=== PATIENT | female | born 1935 | race Caucasian/White ===

== ENCOUNTER → 2018-05-28 09:13 | Outpatient (CLI) | payer MEDICARE, OTHER, SELFPAY ==
[2018-05-28 08:56] VITALS: BMI 33.6
--- NOTE | 2018-05-28 09:32 | US_ITS ---
STUDY: ULTRASOUND BREAST - RIGHT REASON FOR EXAM: Female, 83 years old. Patient was scheduled for ultrasound-guided breast biopsy. TECHNIQUE: Axial and longitudinal images of the RIGHT breast were performed with a high resolution ultrasound transducer. COMPARISON: None. FINDINGS: RIGHT Breast: Imaging of the upper outer quadrant of the right breast demonstrated 2 benign-appearing lymph nodes. The biopsy was canceled. US/Breast Limited Unilateral IMPRESSION: 2 benign-appearing lymph nodes are seen in the axillary region of the breast. The biopsy was canceled. ASSESSMENT CATEGORY: BIRADS Category 2: Benign. A letter regarding these results will be sent to the patient by the facility within 30 days. Electronically Signed: Giancarlo Downey, at 12:59 EDT , Service support ,
== END ==
PROVIDERS: Family Provider Internal Medicine; PCP Internal Medicine; Referring Provider Surgery; Visit Provider Surgery
DX: R92.8 Other abnormal and inconclusive findings on diagnostic imaging of breast (principal)
CPT/HCPCS: 76642

== ENCOUNTER → 2018-08-10 08:30 | Outpatient (CLI) | payer MEDICARE, OTHER, SELFPAY ==
[2018-05-28 08:56] VITALS: BMI 33.6
--- NOTE | 2018-08-10 08:36 | NM_ITS ---
CLINICAL: 83-year-old female with reported history of clinical hyperparathyroidism. 99m Tc SESTAMIBI DUAL PHASE PARATHYROID SCINTIGRAPHY COMPARISON: None available FINDINGS: Following the intravenous administration of 26.1 mCi of 99m Tc sestamibi, image acquisitions of the anterior neck at 20 minutes and 2.0 hours post radiopharmaceutical provision reveal: 1. Immediate static blood pool acquisitions demonstrate distribution of the radiopharmaceutical in the right-left thyroid colloid of a vaguely U-shaped thyroid gland. 2. Delayed images depict relatively symmetric incomplete washout of the radiopharmaceutical from the visualized right-left thyroid beds. No definitive anterior neck focal retention of the radiopharmaceutical is readily identified. Facilitated uptake is noted in the lower midline chest. NM/Parathyroid Scan IMPRESSION: 1. NEGATIVE 99m Tc SESTAMIBI PARATHYROID IMAGING DUAL PHASE EXAMINATION. 2. There is no definitive scintigraphic evidence of parathyroid adenoma on the current evaluation. 3. Facilitated uptake identified in the lower midline chest is of uncertain anatomic localization and etiology. Correlation with CT of the chest with intravenous contrast may be of benefit for further evaluation. Electronically Signed: Kenneth Day DO at 23:12 EDT Tel , Service support ,
== END ==
PROVIDERS: Family Provider Internal Medicine; PCP Internal Medicine; Referring Provider Internal Medicine; Visit Provider Internal Medicine
DX: E21.3 Hyperparathyroidism, unspecified (principal)
CPT/HCPCS: 78070; A9500

== ENCOUNTER → 2018-08-18 12:04 | Outpatient (CLI) | payer MEDICARE, OTHER, SELFPAY ==
[2018-05-28 08:56] VITALS: BMI 33.6
--- NOTE | 2018-08-18 12:16 | CT_ITS ---
STUDY: CT CHEST WITH CONTRAST REASON FOR EXAM: Female, 83 years old. Fatigue RADIATION DOSAGE (If Supplied By Facility): CTDIvol = ( 14.59 ) mGy, DLP = ( 554.00 ) mGycm TECHNIQUE: Transaxial imaging was performed following intravenous administration of 100 IV Isovue 300. Multiplanar coronal and sagittal images were reformatted. Individualized dose optimization techniques were used for this CT. COMPARISON: None. FINDINGS: Within the left-sided thyroid there is a low attenuating nodule measuring 1.2 x 1.0 cm. There is a nodule within the anterior aspect of the left upper lobe measuring 6.1 mm. There is a small nodule within the lingula measuring 4.2 mm. There is a subtle peripheral nodule in the left lung base measuring 6.7 mm. There is no demonstrated pleural abnormality. There is mild cardiac enlargement. There are multiple small lymph nodes within the mediastinum, which are normal in size. There is a nonspecific left hilar lymph node measuring 8.9 mm. Normal enhanced pulmonary arteries. There is atherosclerotic tortuosity of the aortic arch and descending thoracic aorta. There are multi-level degenerative changes of the thoracic spine. There are multiple bridging osteophytes and can be associated with ankylosing spondylolysis. There is a right sided cyst measuring 3.[address]/Chest WITH Contrast IMPRESSION: Small nonspecific nodules within the lungs for which a follow-up CT chest is suggested in 6 months to ensure stability. Small well-circumscribed low attenuating nodule within the left thyroid is a 1.2 x 1.1 cm. Recommend follow-up thyroid ultrasound and laboratory values. Especially given the patient's clinical history. Degenerative change thoracic spine with bridging osteophytosis. This can be associated with ankylosing spondylitis. Electronically Signed: Sandra Bills MD at 23:37 EDT Tel , Service support ,
[2018-08-18 12:41] LABS: CREATININE FINGERSTICK 1.1 mg/dL (0.55-1.02)
== END ==
PROVIDERS: Family Provider Internal Medicine; PCP Internal Medicine; Referring Provider Internal Medicine; Visit Provider Internal Medicine
DX: R93.89 Abnormal findings on diagnostic imaging of other specified body structures (principal)
CPT/HCPCS: 71260; Q9967

== ENCOUNTER → 2018-08-27 14:07 | Outpatient (CLI) | payer MEDICARE, OTHER, SELFPAY ==
[2018-05-28 08:56] VITALS: BMI 33.6
--- NOTE | 2018-08-27 14:09 | BD_ITS ---
STUDY: DUAL ENERGY X-RAY ABSORPTIOMETRY / DXA REASON FOR EXAM: Female, 83 years old. Postmenopausal. Loss of height. TECHNIQUE: Bone Mineral Density (BMD) measurements of the left forearm and bilateral hips were obtained. COMPARISON: Comparison is made with prior examination dated June 26, 2011. FINDINGS: Left Femur Total: g/cm2 (0.687) / T-score (-2.5) / Z-score (-0.3) Left Femoral Neck: g/cm2 (0.588) / T-score (-3.2) / Z-score (-0.9) Right Femur Total: g/cm2 (0.675) / T-score (-2.6) / Z-score (-0.4) Right Femoral Neck: g/cm2 (0.598) / T-score (-3.2) / Z-score (0.8) Left Forearm: g/cm2 (0.689) / T-score (-2.1) / Z-score (1.0) The T-Scores on the most recent prior examination were: Left Femur Total: which represents an improvement of 0.9%. Right Femur Total: which represents a worsening of 3.7%. BD/Dexa Bone Density Study IMPRESSION: The patient is considered osteoporotic as outlined below according to World Nolan Organization (WHO) criteria with a high fracture risk. There has been worsening of bone density since the previous examination. Reference Information: The T-score is the number of standard deviations above or below the standard which is normal for young adults at their peak bone mineral density. The World Health Organization (WHO) interprets the T-scores as follows: Above -1 Normal bone density Between -1 and -2.5 Osteopenia Equal to / or below -2.5 Osteoporosis As a practical clinical guideline, osteopenia may be graded as follows: Mild -1 through -1.5 Moderate -1.6 through -2.0 Severe -2.1 through -2.4 The Z-score is the number of standard deviations above or below age-matched controls. A Z-score of less than -1.5 would be considered abnormal. References: 1. NIH Osteoporosis and Related Bone Diseases http://www.osteo.org 2. International Society for Clinical Densitometry http://www.iscd.org 3. National Osteoporosis Foundation http://www.nof.org Electronically Signed: Giancarlo Downey, at 14:59 EDT , Service support ,
--- NOTE | 2018-08-27 14:09 | BI_ITS ---
MAMMOGRAPHY - BILATERAL SCREENING 3-D TOMOSYNTHESIS REASON FOR EXAM: Female, 83 years old. Bilateral Screening 3-D tomosynthesis PERTINENT HISTORY: No significant family history. TECHNIQUE: 2-D mammograms and 3-D Tomosynthesis of the breast (s) were performed. CAD was performed. COMPARISON: None. FINDINGS: The breast composition is almost entirely fat. Scattered benign calcifications are seen. No dense spiculated masses or suspicious microcalcifications are identified. No architectural distortion is identified. There is no skin thickening or retraction. There has been no significant change since the prior study. BI/SCREEN MAMM (CAD) W/CHIDI BILAT IMPRESSION: No mammographic signs of malignancy. Routine yearly mammograms recommended. ASSESSMENT CATEGORY: BIRADS Category 2: Benign. A letter regarding these results will be sent to the patient by the facility within 30 days. FOLLOW UP RECOMMENDATION: Yearly follow up mammogram recommended. (A) Approximately 10% of breast cancers are not detected by mammography. A normal mammogram should not delay biopsy of a clinically suspicious abnormality. Electronically Signed: Chava Sanchez MD at 17:09 EDT , Service support ,
== END ==
PROVIDERS: Family Provider Internal Medicine; PCP Internal Medicine; Referring Provider Internal Medicine; Visit Provider Internal Medicine
DX: Z78.0 Asymptomatic menopausal state (principal); Z12.31 Encounter for screening mammogram for malignant neoplasm of breast
CPT/HCPCS: 77063; 77067; 77080

== ENCOUNTER → 2018-09-29 09:48 | Outpatient (CLI) | payer MEDICARE, OTHER, SELFPAY ==
[2018-05-28 08:56] VITALS: BMI 33.6
--- NOTE | 2018-09-29 09:50 | US_ITS ---
STUDY: THYROID ULTRASOUND REASON FOR EXAM: Female, 83 years old. Nodules on prior imaging. TECHNIQUE: Ultrasound evaluation of the thyroid was performed with real-time and static king-scale imaging. COMPARISON: Nuclear medicine parathyroid scan August 10, 2018. FINDINGS: RIGHT LOBE: The right lobe of the thyroid gland measures 4.7 x 1.7 x 2.2 cm. There is a homogeneous echotexture. There are multiple well-defined hypoechoic structures of varying size, consistent with colloid cyst. Some of these have a focal mural nodule or calcification along their periphery. The largest of these is 7.5 x 4.5 x 5.8 mm. Heterogeneous, incompletely defined 10.9 x 7.7 x 8.5 mm solid nodule seen in the lower pole. LEFT LOBE: The left lobe of the thyroid gland measures 4.4 x 2.0 x 1.9 cm. There is a homogeneous echotexture. There are multiple well-defined hypoechoic cystic structures, again several with focal mural nodule or other echogenic debris along the periphery. The largest is 9.4 x 10.6 x 10.7 mm complex cyst in the medial posterior mid pole. A moderately well-defined hypoechoic, heterogeneous 6.3 x 8.8 x 5.5 mm structure that may also be a complicated cyst is seen in the lateral midpole. There is a heterogeneous 8.3 x 4.1 x 5.3 mm solid nodule in the anterolateral lower pole. ISTHMUS: The isthmus measures 4 cm. The regional lymph nodes are normal. US/Thyroid IMPRESSION: 1. Findings consistent with a multinodular goiter. Multiple simple and complicated colloid cysts are also present. 2. There is a dominant 10.9 mm solid nodule in the lower pole of the right lobe. At the least, a six-month follow-up is advised to document stability. If clinically indicated, this may also be amenable to ultrasound-guided needle biopsy. Electronically Signed: Phillip Turner MD at 14:59 EDT , Service support ,
== END ==
PROVIDERS: Family Provider Internal Medicine; PCP Internal Medicine; Referring Provider Internal Medicine; Visit Provider Internal Medicine
DX: E04.1 Nontoxic single thyroid nodule (principal)
CPT/HCPCS: 76536

== ENCOUNTER → 2018-10-20 11:11 | Outpatient (CLI) | payer MEDICARE, OTHER, SELFPAY ==
[2018-10-20 09:16] VITALS: BMI 33.6
--- NOTE | 2018-10-20 09:30 | ASPS_PTH ---
PATIENT: Sultana REAVES LOC: [facility] U#:[id number] AGE/SX: 89/F ROOM: RE10/20/[address]: Dr. Dann Maurciio MD : 1935 BED: DIS: SPEC #: [id number] RECD: 10/20/18 10:43 STATUS: CORNELIUS ASHWINI #: [id number] MAMADOU: 10/20/18 09:[address]: Dann Mauricio DEPT: CYTOLOGY RECD BY: Catrachito Pena ENTERED: 10/20/18 11:32 SP TYPE: ASPIRATION OTHR DR: Dr. Angelina Jacobson, DO Tissues: Thyroid gland, NOS Procedures: Special Stain Group II Cytology Other HEADER OPERATION: Ultrasound-guided fine needle aspiration left thyroid PRE-OP DIAGNOSIS: Multinodular goiter E04.2 TISSUE SUBMITTED: Fine needle aspiration left thyroid (12 slides) DIAGNOSIS CYTOLOGY Left thyroid nodule, ultrasound-guided FNA (smears): Consistent with benign colloid nodule with focal cystic changes. Adequate for evaluation. SJ:rg 10/21/18 COMMENT Correlation with clinical, radiologic findings and appropriate follow up are necessary. CYTOLOGY STUDY Slides are reviewed. CYTOLOGY GROSS Received are 12 smears labeled with the patient's name and designated per the requisition as FNA left thyroid. Submitted for staining. / 10/20/18 TC:5 CPT: 55718
== END ==
PROVIDERS: Family Provider Internal Medicine; PCP Internal Medicine; Referring Provider Surgery; Visit Provider Surgery
DX: E04.2 Nontoxic multinodular goiter (principal)
CPT/HCPCS: 88161; 88313

== ENCOUNTER → 2018-11-16 15:51 | Outpatient (CLI) | payer MEDICARE, OTHER, SELFPAY ==
[2018-10-20 09:16] VITALS: BMI 33.6
--- NOTE | 2018-11-16 16:01 | RAD_ITS ---
STUDY: X-RAY - PELVIS AND RIGHT HIP REASON FOR EXAM: Female, 83 years old. Increasing right hip pain. TECHNIQUE: 3 views of the pelvis and hip. COMPARISON: None. FINDINGS: There is a non-specific bowel gas pattern. A pessary device is in situ. There is narrowing with cortical sclerosis and osteophyte formation of the sacroiliac joint consistent with degenerative osteoarthritic changes. Normal bilateral superior and inferior pubic rami. There are degenerative changes of the pubic symphysis with articular narrowing and sclerosis. Normal bilateral ischial tuberosities. Prior laminectomy and fusion of the lower lumbar spine. Normal visualized femoral head. There is osteoarthritic spur formation of the acetabular rim. There is moderate articular joint space narrowing of the hip. RAD/HIP, UNI W/ Pelvis 2-3 Views IMPRESSION: Degenerative changes of the right hip joint. Prior laminectomy and fusion in the lower lumbar spine. Electronically Signed: Giancarlo Downey, at 14:43 EDT , Service support ,
--- NOTE | 2018-11-16 16:01 | RAD_ITS ---
STUDY: X-RAY - RIGHT KNEE REASON FOR EXAM: Female, 83 years old. Increasing hip and knee pain TECHNIQUE: 4 view(s) of the knee. COMPARISON: None. FINDINGS: The knees are intact and located without acute fractures or destructive lesions. There is moderate to severe degenerative change in the lateral weightbearing compartment. Soft tissues unremarkable without joint effusion or foreign bodies. RAD/Knee 4 or More Views IMPRESSION: Moderate to severe degenerative change in the lateral weightbearing compartment. Electronically Signed: Angle Bess, at 16:59 EDT Tel , Service support ,
== END ==
PROVIDERS: Family Provider Internal Medicine; PCP Internal Medicine; Referring Provider Internal Medicine; Visit Provider Internal Medicine
DX: M17.11 Unilateral primary osteoarthritis, right knee (principal); M16.11 Unilateral primary osteoarthritis, right hip
CPT/HCPCS: 73502; 73564

== ENCOUNTER → 2019-03-05 12:58 | Outpatient (CLI) | payer MEDICARE, OTHER, SELFPAY ==
[2018-10-09 13:04] VITALS: BMI 33.6
[2018-10-20 09:16] VITALS: BMI 33.6
--- NOTE | 2019-03-05 13:01 | CT_ITS ---
STUDY: CT CHEST WITHOUT CONTRAST REASON FOR EXAM: Female, 83 years old. lung nodule RADIATION DOSAGE (If Supplied By Facility): CTDIvol = ( 13.47 ) mGy, DLP = ( 445.52 ) mGycm TECHNIQUE: Transaxial imaging was performed without the administration of intravenous contrast material. Individualized dose optimization techniques were used for this CT. COMPARISON: 08/18/2018 FINDINGS: Linear scar in the anterior left upper lobe the lungs. No change in a 6 mm noncalcified nodule in the anterior left upper lobe the lungs on image 76 likely consistent with a noncalcified granuloma. Follow-up CT the chest is recommended in 6 months document stability. Also no change in the 6 cm noncalcified nodule in the periphery of the left lower lobe the lungs on image 133 and follow-up CT is recommended in 6 months document stability. There is no demonstrated pleural abnormality. Normal heart and pericardium. There are calcifications of the coronary arteries. Normal mediastinum. Normal hilar regions. Normal unenhanced pulmonary arteries. Normal aorta arch and descending thoracic aorta. Normal osseous structures. There is no demonstrated abnormality of the visualized upper abdomen. CT/Chest without Contrast IMPRESSION: No change in left lung nodules follow-up CT is recommended in 6 months document stability. Electronically Signed: Kenneth Thakkar MD at 13:36 EST Tel , Service support ,
== END ==
PROVIDERS: Family Provider Internal Medicine; PCP Internal Medicine; Referring Provider Internal Medicine Pulmonary Disease; Visit Provider Internal Medicine Pulmonary Disease
DX: R91.8 Other nonspecific abnormal finding of lung field (principal)
CPT/HCPCS: 71250

== ENCOUNTER → 2019-07-22 12:01 | Outpatient (CLI) | payer MEDICARE, OTHER, SELFPAY ==
[2018-10-20 09:16] VITALS: BMI 33.6
--- NOTE | 2019-07-22 12:09 | MRI_ITS ---
STUDY: MRA OF THE HEAD WITHOUT CONTRAST REASON FOR EXAM: Female, 84 years old. F/u to abnormal mri; bulge off of cavernous carotid artery TECHNIQUE: 3-D [id number] (TOF) imaging was performed with MIPs. The study was performed unenhanced. COMPARISON: None. FINDINGS: Normal bilateral petrous carotid arteries. Mild dolichoectasia of the right cavernous carotid artery and the right supraclinoid internal carotid artery. Normal right supraclinoid ICA bifurcation. 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 The aneurysmal sac is directed medially.. The aneurysm neck is 4.5 mm and the length of the aneurysm is 4.2 mm. Mild dolichoectasia of the left internal carotid artery siphon extending to the left supraclinoid internal carotid artery. Normal left supraclinoid internal carotid artery bifurcation. Normal right A1 segment of the anterior cerebral artery. Normal left A1 segment of the anterior cerebral artery. Normal intact anterior communicating artery (ACOM). Normal bilateral A2 segments of the anterior cerebral arteries. Normal right M1 and M2 segments of the middle cerebral arteries, with a normal M1 bifurcation. Normal left M1 and M2 segments of the middle cerebral arteries, with a normal M1 bifurcation. No visible right posterior communicating artery (PCOM). Normal left posterior communicating artery (PCOM). Normal bilateral vertebral arteries. The right is more dominant. Normal basilar artery with a normal basilar bifurcation. The visualized bilateral superior cerebellar (SCA) arteries are normal. Normal bilateral P1, P2 and visualized P3 segments of the posterior cerebral arteries. There is no demonstrated aneurysm of the [place]. There is no major vessel occlusion or hemodynamically significant stenosis. There is no demonstrated abnormality of the visualized brain. OPINION: 1. 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 There is no risk of subarachnoid hemorrhage since this is extradural in location. 2. Mild dolichoectasia of both internal carotid artery siphons extending to the supraclinoid internal carotid arteries. 3. No other saccular aneurysms and no fusiform aneurysms of the anterior and posterior intracranial circulation. Electronically Signed: Zohaib Hitchcock MD at 16:38 EDT , Service support , MRI/MRA Head ONLY without Contrast
== END ==
PROVIDERS: PCP Internal Medicine; Referring Provider Internal Medicine; Visit Provider Internal Medicine
DX: R90.89 Other abnormal findings on diagnostic imaging of central nervous system (principal)
CPT/HCPCS: 70544

== ENCOUNTER → 2019-09-07 12:49 | Outpatient (CLI) | payer MEDICARE, OTHER, SELFPAY ==
[2018-10-20 09:16] VITALS: BMI 33.6
--- NOTE | 2019-09-07 12:59 | CT_ITS ---
STUDY: CT CHEST WITHOUT CONTRAST REASON FOR EXAM: Female, 84 years old. LUNG NODULE RADIATION DOSAGE (If Supplied By Facility): CTDIvol = ( 15.24 ) mGy, DLP = ( 459.96 ) mGycm TECHNIQUE: Transaxial imaging was performed without the administration of intravenous contrast material. Multiplanar coronal and sagittal images were reformatted. Individualized dose optimization techniques were used for this CT. COMPARISON: Comparison is made with prior examination dated March 05, 2019. FINDINGS: Stable small bilateral axillary lymph nodes. Stable linear scar anterior aspect of the left upper lobe. Stable 6 mm noncalcified nodule in the anterior medial aspect of the left upper lobe as seen on axial image #76. Stable 6 mm noncalcified nodule in the peripheral aspect of the left lower lobe as seen on axial image #126. Stable increased markings in the posterior aspect of the lingular segment of the left upper lobe as well as in the left lower lobe suggestive of scarring. This is unchanged. There is no demonstrated pleural abnormality. There are calcifications of the coronary arteries. There are multiple small lymph nodes within the mediastinum, which are normal in size and morphology most compatible with reactive lymph hyperplasia. Normal hilar regions. Normal unenhanced pulmonary arteries. There is atherosclerotic calcification of the aortic arch with tortuosity and elongation of the aortic arch and descending thoracic aorta. There are multi-level degenerative changes of the thoracic spine. Increased thoracic kyphosis. There is no demonstrated abnormality of the visualized upper abdomen. CT/Chest without Contrast IMPRESSION: Stable examination. A 12 month follow-up CT examination recommended for further follow-up. Electronically Signed: Giancarlo Dwoney, at 13:38 EDT , Service support ,
--- NOTE | 2019-09-07 13:10 | US_ITS ---
STUDY: THYROID ULTRASOUND REASON FOR EXAM: Female, 84 years old. NODULE TECHNIQUE: Ultrasound evaluation of the thyroid was performed with real-time and static king-scale imaging. COMPARISON: September 29, 2018 FINDINGS: RIGHT LOBE: The right lobe of the thyroid gland measures 4.4 x 1.7 x 1.6 cm. There is a heterogeneous echotexture. There are multiple nodules. The largest nodule is solid and heterogeneous measuring 7 x 7 x 10 mm in the lower pole with irregular margins and intranodular vascularity. There is a cystic lesion in the upper pole measuring 7 x 5 x 5 mm.. LEFT LOBE: The left lobe of the thyroid gland measures 4.5 x 1.9 x 1.7 cm. Echogenicity is heterogeneous. There are multiple nodules. The largest nodule measures 7 x 8 x 6 mm demonstrating complex cystic structure with irregular margins and perih nodular vascularity There is a cystic nodule in the upper pole measuring 7 x 7 x 7 mm solid hypoechoic nodule in the lower pole measuring 6 x 5 x 5 mm ISTHMUS: The isthmus measures 4 mm . The regional lymph nodes are normal. The appearance of the thyroid is relatively stable since prior exam with the largest nodules being relatively unchanged in size US/Thyroid IMPRESSION: Heterogeneous thyroid with multiple bilateral nodules not significantly changed since prior exam.. Electronically Signed: Edmar Tucker MD at 16:54 EDT , Service support ,
== END ==
PROVIDERS: PCP Internal Medicine; Referring Provider Internal Medicine; Visit Provider Internal Medicine
DX: R91.8 Other nonspecific abnormal finding of lung field (principal); E04.1 Nontoxic single thyroid nodule
CPT/HCPCS: 71250; 76536

== ENCOUNTER → 2019-10-20 10:47 | Outpatient (CLI) | payer MEDICARE, OTHER, SELFPAY ==
[2018-10-20 09:16] VITALS: BMI 33.6
--- NOTE | 2019-10-20 10:49 | MRI_ITS ---
STUDY: MRA OF THE HEAD WITHOUT CONTRAST REASON FOR EXAM: Female, 84 years old. brain aneurysm -- left eye pain, TECHNIQUE: 3-D idba-sa-gaduvc (TOF) imaging was performed with MIPs. The study was performed unenhanced. COMPARISON: None. FINDINGS: Normal bilateral petrous carotid arteries. Normal right cavernous carotid artery with a normal supraclinoid bifurcation. 5 mm aneurysm of the medial wall of the cavernous left carotid artery extending into the cavernous sinus. Normal right A1 segments of the anterior cerebral artery. Normal left A1 segments of the anterior cerebral artery. Normal intact anterior communicating artery (ACOM). Normal bilateral A2 segments of the anterior cerebral arteries. Normal right M1 and M2 segments of the middle cerebral arteries, with a normal M1 bifurcation. Normal left M1 and M2 segments of the middle cerebral arteries, with a normal M1 bifurcation. Normal right posterior communicating artery (PCOM). Normal left posterior communicating artery (PCOM). Normal bilateral vertebral arteries. Normal basilar artery with a normal basilar bifurcation. The visualized bilateral superior cerebellar (SCA) arteries are normal. Normal bilateral P1, P2 and visualized P3 segments of the posterior cerebral arteries. There is no demonstrated aneurysm of the [place]. There is no major vessel occlusion or hemodynamically significant stenosis. There is no demonstrated abnormality of the visualized brain. 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 Electronically Signed: Kenneth Thakkar MD at 13:05 EDT Tel , Service support ,
== END ==
PROVIDERS: PCP Internal Medicine; Referring Provider Internal Medicine; Visit Provider Internal Medicine
DX: I67.1 Cerebral aneurysm, nonruptured (principal)
CPT/HCPCS: 70544

== ENCOUNTER → 2020-01-11 | Outpatient (CLI) | payer MEDICARE, OTHER, SELFPAY ==
[2018-10-20 09:16] VITALS: BMI 33.6
--- NOTE | 2020-01-11 14:20 | CER_PTH ---
PATIENT: Sultana REAVES [facility] U#:[id number] AGE/SX: 84/F ROOM: RE01/11/[address]: Dr. Risa Linton MD : 1935 BED: DIS: 01/11/2020 SPEC #: [id number] RECD: 01/11/20 14:20 STATUS: CORNELIUS REQ #: [id number] MAMADOU: 01/11/20 14:[address]: Risa Mckeon DEPT: SURGICAL PATHOLOGY RECD BY: Hannah Mtz ENTERED: 01/12/20 08:57 SP TYPE: CERV OTHR DR: Dr. Angelina Jacobson DO Tissues: Uterine cervix, NOS Procedures: Surgery Specimen Level IV HEADER OPERATION: Removal cervical polyp PRE-OP DIAGNOSIS: Cervical polyp TISSUE SUBMITTED: Cervical polyp MICROSCOPIC DIAGNOSIS Cervical polyp: Inflamed benign mixed ecto- and endocervical polyp. Fragments of benign endocervical epithelium and mucous. SJ:whit 01/13/20 MICROSCOPIC DESCRIPTION Slides are reviewed. GROSS DESCRIPTION Received in fixative is one container labeled with the patient's name and designated cervical polyp. The specimen consists of a fragment of burdick polypoid tissue measuring 0.5 x 0.5 x 0.3 cm. Also present in the container are multiple fragments of mucoid tissue that in aggregate measure 1 x 1 x 0.1 cm. The specimen is totally submitted in one cassette. / SJ:whit 01/12/20 TC:5 [facility]: [id number]
== END | disposition home or self-care (01) ==
LOC: LABSPEC 16:21
PROVIDERS: PCP Internal Medicine; Visit Provider Obstetrics & Gynecology
DX: N84.1 Polyp of cervix uteri (principal)
CPT/HCPCS: 88305

== ENCOUNTER 2020-09-11 16:57 | Inpatient (IN) | payer MEDICARE, OTHER, SELFPAY ==
[2018-10-20 09:16] VITALS: BMI 33.6
[2020-09-11] VITALS (9 sets, daily range): BP systolic 134–154; BP diastolic 78–89; PULSE 63–88; RESP 16–22; TEMP 36.6–37.1; O2SAT 84–98; BMI 33.0; BMI 38.3; BMI 37.5
--- NOTE | 2020-09-11 17:34 | CT_ITS ---
STUDY: CTA CHEST REASON FOR EXAM: Female, 85 years old. Hypoxia, eval for PE RADIATION DOSAGE (If Supplied By Facility): CTDIvol = ( 8.10 ) mGy, DLP = ( 502.28 ) mGycm TECHNIQUE: The examination was performed with the intravenous administration of IV 100mL Isovue-370. Post-processing of the angiographic images was performed, with multiplanar reformation and 3D reconstruction. Individualized dose optimization techniques were used for this CT. COMPARISON: 09/07/2019 FINDINGS: Normal enhancement of the main pulmonary artery and right and left pulmonary arteries. Normal enhancement of the bilateral peripheral pulmonary arteries. Positive for branching filling defects within the distal aspect of both main pulmonary arteries extending into the ascending and descending pulmonary arteries bilaterally consistent with significant pulmonary emboli. Normal thoracic aorta and visualized great vessels. There is no demonstrated aortic dissection. Normal heart and pericardium. Normal mediastinum. Normal hilar regions. Normal visualized trachea and bronchi. The lungs are well expanded. Normal pulmonary parenchyma. Normal pleura. Normal chest wall structures. Normal osseous structures. Normal visualized upper abdomen. CT/CTA Chest W/WO Contrast IMPRESSION: Positive for bilateral significant pulmonary emboli. Electronically Signed: Kenneth Thakkar MD at 19:11 EDT Tel , Service support ,
--- NOTE | 2020-09-11 17:34 | EKG12_ITS ---
Test Reason : SOB Blood Pressure : / mmHG Vent. Rate : 079 BPM Atrial Rate : 079 BPM P-R Int : 190 ms QRS Dur : 088 ms QT Int : 384 ms P-R-T Axes : 065 059 104 degrees QTc Int : 440 ms Normal sinus rhythm Cannot rule out Inferior infarct , age undetermined Anterior infarct , age undetermined , cannot be excluded ST & T wave abnormality, consider lateral ischemia Abnormal ECG Confirmed by NEHEMIAS CHADWICK, AROLDO ([id number]), offline editor RADHA HE ([id number]) on 09/13/2020 11:50:48 AM Referred By: MICHEL Confirmed By:AROLDO DEL CID MD
--- NOTE | 2020-09-11 17:37 | EDS_ITS ---
HPI History of Present Illness Chief Complaint: Shortness of Breath Informant: patient Narrative Narrative: Patient is a 85-year-old female who presents to the emergency department for shortness of breath. She states that this started . It started after her Prolia injection which she has had 3 other times before in the past. She never had shortness of breath after the injections before. She states that with any exertion she becomes very winded that takes 15 minutes for her to catch her breath. This occurs even after walking short distances. She is never had this before. No associated chest pain. She denies any cough, cold, congestion symptoms. No leg swelling or calf pain. She denies any history of CAD, DVT/PE. She denies any abdominal pain or nausea/vomiting. She has not had any black tarry stools. No urinary symptoms. She denies a smoking history. No history of COPD or asthma. She has not been taking anything for this. She was at her PCPs office today and was satting in the 80s. [facility] Medical History (Updated 09/11/20 @ 21:[address] Corby Sanchez, ) Benign essential HTN Bradycardia Breast lump Multinodular goiter Osteoarthritis PVCs (premature ventricular contractions) Home Medications amlodipine 10 mg tablet 10 mg PO QDAY 10/09/17 [History Last Taken Unknown] cholecalciferol (vitamin D3) 125 mcg (5,000 unit) capsule 5,000 unit PO QDAY 10/09/17 [History Last Taken Unknown] duloxetine 30 mg capsule,delayed release 60 mg PO QDAY 10/09/17 [History Last Taken Unknown] hydrochlorothiazide 25 mg tablet 25 mg PO QDAY 10/09/17 [History Last Taken Unknown] metoprolol succinate 25 mg tablet,extended release 24 hr 25 mg PO QDAY 10/09/17 [History Last Taken Unknown] oxybutynin chloride 10 mg tablet,extended release 24 hr 10 mg PO QDAY 10/09/17 [History Last Taken Unknown] potassium chloride 20 mEq oral packet 20 meq PO QDAY 10/09/17 [History Last Taken Unknown] pregabalin 75 mg capsule 100 mg PO BID cap 10/09/17 [History Last Taken Unknown] atorvastatin 10 mg PO DAILY 09/11/20 [History Last Taken Unknown] carbamazepine 200 mg PO BID 09/11/20 [History Last Taken Unknown] cetirizine [Zyrtec] 10 mg PO DAILY 09/11/20 [History Last Taken Unknown] denosumab [Prolia] See Rx Instructions .ROUTE .COMPLEX 09/11/20 [History Last Taken Unknown] oxycodone-acetaminophen 1 tab PO Q8H PRN PRN 09/11/20 [History Last Taken Unknown] Allergy/AdvReac Type Severity Reaction Status Date / Time No Known Allergies Allergy Verified 09/11/20 16:58 Family History Brother Cancer prostate cancer Father Heart disease Surgical History History of back surgery Hx of blood clots Hx of tonsillectomy Hx of tubal ligation Social History Smoking Status: Never smoker second hand exposure: No alcohol intake: never substance use type: does not use caffeine: Yes what type of physical activity do you participate in: other frequency: does not exercise seatbelt use: always ROS ROS ED Constitutional Constitutional ED: Denies chills or fever(s) Eyes Eyes: Denies change in vision ENT ENT ED: Denies epistaxis or rhinorrhea Cardiovascular Cardiovascular: Denies chest pain or palpitations Respiratory/Chest Respiratory/Chest: Reports dyspnea and dyspnea on exertion; Denies cough or sputum Gastrointestinal Gastrointestinal: Denies abdominal pain, diarrhea, nausea or vomiting Genitourinary Genitourinary ED: Denies dysuria, hematuria or urinary frequency Musculoskeletal Musculoskeletal: Denies back pain or neck pain Integumentary Denies rash Neurologic Neurologic: Denies dizziness, headache(s) or weakness EXAM Physical Exam Const Vital Signs: 09/11/20 16:58 09/11/20 17:07 09/11/20 17:08 Temperature 98.7 F Temperature Source Temporal Pulse Rate 88 82 Respiratory Rate 18 22 H Respiratory Effort Short of Breath Respiratory Pattern Tachypnea Blood Pressure 145/86 H Blood Pressure Mean 105 Pulse Ox 89 84 Oxygen Delivery Method Room Air Room Air Room Air Oxygen Flow Rate (L/min) 09/11/20 17:12 09/11/20 18:11 09/11/20 19:21 Temperature Temperature Source Pulse Rate 66 68 Respiratory Rate 18 16 Respiratory Effort Respiratory Pattern Blood Pressure 151/80 H 154/82 H Blood Pressure Mean 103 106 Pulse Ox 96 98 98 Oxygen Delivery Method Nasal Cannula Nasal Cannula Nasal Cannula Oxygen Flow Rate (L/min) 3 3 3 Positive well nourished and well developed General Appearance ED: well developed and NAD HEENT Reports normocephalic, head/scalp atraumatic and moist mucous membranes Eyes PERRL and EOMs intact bilaterally Neck supple Resp normal respiratory effort and clear to auscultation bilaterally Auscultation: Negative for rales, rhonchi or wheezes Cardio regular rate, regular rhythm and no murmurs GI normal to inspection, nondistended, normoactive bowel sounds and non-tender Palpation: soft; Negative for guarding or rebound tenderness present Extremity normal to inspection General Extremety ED: Negative for edema or tenderness General Extremity: Negative for edema Neuro CN's II-XII intact bilaterally and no sensory deficits noted Sensorium / Orientation: alert Motor Exam: strength 5/5 throughout Psych mental status grossly normal Skin no rashes or lesions noted MDM MDM MDM Narrative Medical decision making narrative: Patient presents to the ED for exertional shortness of breath. This is new for starting this past . Is after getting a Prolia injection. She is descending with short ambulation. She is requiring supplemental oxygen here to keep her O2 saturation up. Will check basic lab work, EKG and CT scan of the chest. She otherwise is in no acute distress and speaking in full sentences on examination. Patient's lab work shows a mild elevation of BNP and troponin. No other significant acute abnormality. CT scan of the chest unfortunately did show bilateral pulmonary emboli. No comment on right heart strain was made by radiologist. She is not having any hypotension here in the ED. She is on 3 L of supplemental oxygen and satting well. Patient started on heparin. All findings were discussed with her. Will bring her to the hospital for further evaluation and management at this time. Lab Data Labs: Laboratory Results - last 24 hr 09/11/20 09/11/20 09/11/20 17:17 17:17 17:17 WBC 6.4 RBC 4.48 Hgb 14.3 Hct 42.4 MCV 94.6 MCH 31.9 MCHC 33.7 RDW Std Deviation 42.7 RDW Coeff of Irish 12.4 Plt Count 158 MPV 9.4 Immature Gran % (Auto) 0.600 Neut % (Auto) 65.2 Lymph % (Auto) 19.4 [place] % (Auto) 11.5 H Eos % (Auto) 2.8 Baso % (Auto) 0.5 Absolute Neuts (auto) 4.2 Absolute Lymphs (auto) 1.25 Nucleated RBC % 0 PT INR APTT Sodium 139 Potassium 3.9 Chloride 106 Carbon Dioxide 26.0 Anion Gap 7 BUN 27 H Creatinine 1.11 H Estim Creat Clear Calc 27.45 Est GFR (MDRD) Af Amer 60 Est GFR (MDRD) Non-Af 50 L BUN/Creatinine Ratio 24.3 H Glucose 101 Calcium 9.1 Total Bilirubin 0.50 AST 28 ALT 32 Alkaline Phosphatase 98 Troponin I High Sens 59.0 H* B-Natriuretic Peptide 124.0 H Total Protein 7.2 Albumin 3.6 Globulin 3.6 Albumin/Globulin Ratio 1.0 09/11/20 19:05 WBC RBC Hgb Hct MCV MCH MCHC RDW Std Deviation RDW Coeff of Irish Plt Count MPV Immature Gran % (Auto) Neut % (Auto) Lymph % (Auto) [place] % (Auto) Eos % (Auto) Baso % (Auto) Absolute Neuts (auto) Absolute Lymphs (auto) Nucleated RBC % PT 14.8 INR 1.2 APTT 24.6 Sodium Potassium Chloride Carbon Dioxide Anion Gap BUN Creatinine Estim Creat Clear Calc Est GFR (MDRD) Af Amer Est GFR (MDRD) Non-Af BUN/Creatinine Ratio Glucose Calcium Total Bilirubin AST ALT Alkaline Phosphatase Troponin I High Sens B-Natriuretic Peptide Total Protein Albumin Globulin Albumin/Globulin Ratio Radiography Diagnostic Testing: Radiology Impression Chest CTA 09/11/20 17:34 IMPRESSION: Positive for bilateral significant pulmonary emboli. Electronically Signed: Kenneth Thakkar MD at 19:11 EDT Tel , Service support , EKG Initial EKG: Attestation: I personally reviewed and interpreted this EKG as follows: (Rate of 79 bpm and normal sinus rhythm. Normal intervals. Normal axis. No significant ST elevations or depressions. Minor ST elevation in lead III but no reciprocal changes.) Critical Care Time Critical Care Time: Yes Critical care time (excluding procedures): 30-74 minutes (30), Discussing w/Patient &/or Family/Post Anesthesia Nurse, Discussing w/Consultants, Arranging Admission or Transfer and Performing Direct Patient Care at Bedside Discharge Plan Dx/Rx/DC Orders Clinical Impression: Bilateral pulmonary embolism, Hypoxia Disposition Disposition: Acute Care Hospital [facility] Discharge Date/Time: 09/11/20 20:46
[2020-09-11 17:57] LABS: Absolute Lymphocyte Count 1.25 X10^3/uL (0.83-4.51); Absolute Neutrophil Count 4.2 X10^3/uL (2.0-7.7); Basophil# 0.03 X10^3/uL; Basophil% 0.5 % (0-1); Eosinophil# 0.18 X10^3/uL; Eosinophils% 2.8 % (0-5); Hematocrit 42.4 % (37-47); Hemoglobin 14.3 g/dL (12.0-15.0); Lymphocyte # 1.25 X10^3/ul (0.83-4.51); Lymphocyte % 19.4 % (19-41); Mean Corp Hgb Conc 33.7 g/dL (32-36); Mean Corpuscular Hgb 31.9 pg (27.0-32.0); Mean Corpuscular Volume 94.6 fL (81-99); Mean Platelet Vol. 9.4 fl (6.2-12.0); Monocyte# 0.74 X10^3/uL; Monocyte% 11.5 % (0-10); NRBC Flagged by Analyzer 0 % (0-5); Neutrophil % 65.2 % (47-70); Platelet Count 158 K/mm3 (150-450); RBC Distribution Width CV 12.4 % (11.6-14.6); RBC Distribution Width SD 42.7 fl (35.1-43.9); Red Blood Count 4.48 M/mm3 (4.2-5.4); White Blood Count 6.4 K/mm3 (4.4-11.0)
[2020-09-11 18:30] LABS: AST(SGOT) 28 U/L (15-37); Alanine Aminotransfer ALT/SGPT 32 U/L (13-56); Albumin, Serum 3.6 g/dL (3.2-5.0); Alkaline Phosphatase 98 U/L (45-117); Anion Gap 7 (5-15); BUN 27 mg/dL (7-18); BUN/Creat Ratio 24.3 RATIO (10-20); Calcium,Total 9.1 mg/dL (8.5-10.1); Chloride 106 mmol/L (98-107); Creatinine, Serum 1.11 mg/dL (0.55-1.02); EST Glomerular Filtration Rate 50 mL/min (>60); Est Glom Filt Rate - Afr Amer 60 mL/min (>60); Estimated Creatinine Clearance 27.45 ml/min; Globulin 3.6 g/dL (2.2-4.2); Glucose 101 mg/dL (74-106); Potassium 3.9 mmol/L (3.5-5.1); Protein, Total 7.2 g/dL (6.4-8.2); Sodium Level 139 mmol/L (136-145)
[2020-09-11] MEDS: Heparin Injection (Vial) 5,000 UNIT/ML VIAL 7500 UNIT IV (19:24)
[2020-09-11 19:26] LABS: International Normalized Ratio 1.2; Prothrombin Time (Protime)PT. 14.8 SECONDS (11.7-14.9)
[2020-09-11] MEDS: HEPARIN/D5w 25,000 UNITS 25,000 UNITS/250 ML IV.SOLN. 14 UNITS IV (19:26)
[2020-09-11 19:27] LABS: Partial Thromboplast Time 24.6 Seconds (24.1-36.2)
--- NOTE | 2020-09-11 20:01 | PCM.HP.STD ---
HPI - General General Date of Admission: 09/11/20 HPI Narrative Sultana REAVES, is a 85 F with a significant history of hypertension; and osteoporosis who presents to emergency department with shortness of breath. Her shortness of breath is with mild exertion. Her shortness of breath started 4 days ago after taking Prolia shots at the MDs office. Her symptoms started even before she left the MDs office. Her shortness of breath increased the next days and actually improved for the next 2 days only to worsen on the day of presentation. However this is her fourth Prolia injection. At the emergency department CTA showed bilateral PE. At the emergent part the patient was found to be hypoxic at rest. Reportedly her oxygen saturation was in the 80s. Her hypoxia increased with mild exertion. She was placed on supplemental oxygen at the ED. Patient denied any history of recent travels; surgery; immobilization or family history of clots. Her last colonoscopy was 15 years ago. Her last mammogram was about a year ago and it was normal. Also for the past 2 to 3 months as she reports fatigue; sleepiness; and muscle aches. She walks with a walker. [facility] Medical History Benign essential HTN Bradycardia Breast lump Multinodular goiter Osteoarthritis PVCs (premature ventricular contractions) Home Medications amlodipine 10 mg tablet 10 mg PO QDAY 10/09/17 [History Last Taken Unknown] cholecalciferol (vitamin D3) 125 mcg (5,000 unit) capsule 5,000 unit PO QDAY 10/09/17 [History Last Taken Unknown] duloxetine 30 mg capsule,delayed release 60 mg PO QDAY 10/09/17 [History Last Taken Unknown] hydrochlorothiazide 25 mg tablet 25 mg PO QDAY 10/09/17 [History Last Taken Unknown] metoprolol succinate 25 mg tablet,extended release 24 hr 25 mg PO QDAY 10/09/17 [History Last Taken Unknown] oxybutynin chloride 10 mg tablet,extended release 24 hr 10 mg PO QDAY 10/09/17 [History Last Taken Unknown] potassium chloride 20 mEq oral packet 20 meq PO QDAY 10/09/17 [History Last Taken Unknown] pregabalin 75 mg capsule 100 mg PO BID cap 10/09/17 [History Last Taken Unknown] atorvastatin 10 mg PO DAILY 09/11/20 [History Last Taken Unknown] carbamazepine 200 mg PO BID 09/11/20 [History Last Taken Unknown] cetirizine [Zyrtec] 10 mg PO DAILY 09/11/20 [History Last Taken Unknown] denosumab [Prolia] See Rx Instructions .ROUTE .COMPLEX 09/11/20 [History Last Taken Unknown] oxycodone-acetaminophen 1 tab PO Q8H PRN PRN 09/11/20 [History Last Taken Unknown] Allergy/AdvReac Type Severity Reaction Status Date / Time No Known Allergies Allergy Verified 09/11/20 16:58 Family History Brother Cancer prostate cancer Father Heart disease Surgical History History of back surgery Hx of blood clots Hx of tonsillectomy Hx of tubal ligation Social History Smoking Status: Never smoker second hand exposure: No alcohol intake: never substance use type: does not use caffeine: Yes what type of physical activity do you participate in: other frequency: does not exercise seatbelt use: always ROS ROS Narrative 12 point review of system is negative except as stated in HPI. Vital Signs Vital Signs Vital Signs: 09/11/20 16:58 09/11/20 17:07 09/11/20 17:08 Temperature 98.7 F Temperature Source Temporal Pulse Rate 88 82 Respiratory Rate 18 22 H Respiratory Effort Short of Breath Respiratory Pattern Tachypnea Blood Pressure 145/86 H Blood Pressure Mean 105 Pulse Ox 89 84 Oxygen Delivery Method Room Air Room Air Room Air Oxygen Flow Rate (L/min) 09/11/20 17:12 09/11/20 18:11 09/11/20 19:21 Temperature Temperature Source Pulse Rate 66 68 Respiratory Rate 18 16 Respiratory Effort Respiratory Pattern Blood Pressure 151/80 H 154/82 H Blood Pressure Mean 103 106 Pulse Ox 96 98 98 Oxygen Delivery Method Nasal Cannula Nasal Cannula Nasal Cannula Oxygen Flow Rate (L/min) 3 3 3 Weight Weight: 92 kg Body Mass Index (BMI) 38.3 Physical Exam Narrative Physical exam: General: Well-nourished, well-developed, no acute distress Head: Normocephalic, atraumatic, no tenderness Eyes: PERRLA, EOMI ENT, no trauma, moist mucous membranes, no rhinorrhea Neck: Nontender, full range of motion, no spinal tenderness, deformities, step-off CVS: Regular rate and rhythm Respiratory no acute distress, clear to auscultation bilaterally, chest wall nontender, no wheezing Abdomen: Soft, nontender, nondistended, normal bowel sounds, no masses : Deferred Extremities: Nontender full range of motion, no trauma Skin: Normal color, no trauma, abrasions Neuro: Alert, oriented, cranial nerves II through XII grossly intact. Results Lab / Micro Data Result Diagrams: 09/11/20 17:17 09/11/20 17:17 Labs: Laboratory Results - last 24 hr 09/11/20 17:17: WBC 6.4, RBC 4.48, Hgb 14.3, Hct 42.4, MCV 94.6, MCH 31.9, MCHC 33.7, RDW Std Deviation 42.7, RDW Coeff of Irish 12.4, Plt Count 158, MPV 9.4, Immature Gran % (Auto) 0.600, Neut % (Auto) 65.2, Lymph % (Auto) 19.4, [place] % (Auto) 11.5 H, Eos % (Auto) 2.8, Baso % (Auto) 0.5, Absolute Neuts (auto) 4.2, Absolute Lymphs (auto) 1.25, Nucleated RBC % 0 09/11/20 17:17: Sodium 139, Potassium 3.9, Chloride 106, Carbon Dioxide 26.0, Anion Gap 7, BUN 27 H, Creatinine 1.11 H, Estim Creat Clear Calc 27.45, Est GFR (MDRD) Af Amer 60, Est GFR (MDRD) Non-Af 50 L, BUN/Creatinine Ratio 24.3 H, Glucose 101, Calcium 9.1, Total Bilirubin 0.50, AST 28, ALT 32, Alkaline Phosphatase 98, Troponin I High Sens 59.0 H*, Total Protein 7.2, Albumin 3.6, Globulin 3.6, Albumin/Globulin Ratio 1.0 09/11/20 17:17: B-Natriuretic Peptide 124.0 H 09/11/20 19:05: PT 14.8, INR 1.2, APTT 24.6 Radiology Impression Chest CTA 09/11/20 17:34 IMPRESSION: Positive for bilateral significant pulmonary emboli. Electronically Signed: Kenneth Thakkar MD at 19:11 EDT Tel , Service support , Assessment & Plan Assessment/Plan (1) Respiratory insufficiency: (2) Bilateral pulmonary embolism: PLAN: Acute respiratory insufficiency secondary to bilateral pulmonary embolism Radiologist impression of CTA: Positive for bilateral significant pulmonary emboli. Actual CT image was independently interpreted and agree with radiologist interpretation. EKG independently interpreted showed Q waves in V1 to V3. Emergency department labs reviewed showed slightly elevated high sensitivity troponin; trend. BNP is mildly elevated at 124. Patient was started on heparin drip at the emergency department; continued. Discussed with patient that likely should be transitioned to p.o. anticoagulants in due course. We will get an echocardiogram. Hypertension Blood pressure is not within goal Amlodipine; HCTZ and metoprolol continued. Trend blood pressure and adjust blood pressure medications. Vitamin D deficiency Check vitamin D level Depression/chronic pain Cymbalta continued. DVT prophylaxis Not indicated since patient has acute PE and has been started on heparin drip. Charges/Coding Visit Charges Inpatient E&M: 83513 Init Hosp L3
--- NOTE | 2020-09-11 21:15 | ECHOD_ITS ---
Reason For Study: Pulm emboli Procedure This was a 2D Doppler, Color Flow transthoracic echocardiogram. The study was technically difficult. Exam performed portable in patient room. Left Ventricle Normal LV size. Left ventricular systolic function is normal. The estimated ejection fraction is 65 %. There is evidence of diastolic dysfunction. No regional wall motion abnormalities noted. Right Ventricle Normal RV size. Normal systolic function. Atria Normal left atrium. Normal right atrium. No doppler evidence for ASD. Mitral Valve There is no mitral annular calcification. Normal mitral valve. Trivial mitral valve insufficiency. Tricuspid Valve Normal tricuspid valve. Trivial tricuspid valve insufficiency. Right ventricular systolic pressure estimated to be 49 mmHg. Aortic Valve Trisinus/trileaflet aortic valve. Mild diffuse aortic valve thickening. Mild focal aortic valve calcification. Pulmonic Valve The pulmonic valve is not well visualized. Great Vessels Normal sized aortic root. Pericardium/Pleural No pericardial effusion. MMode/2D Measurements & Calculations LVIDd: 4.1 cm IVSd: 1.2 cm Ao root diam: 3.4 cm LVIDs: 1.9 cm LVPWd: 1.00 cm RVDd: 3.4 cm FS: 53.7 % LAV(MOD-bp): 33.3 ml LA A4 area: 14.0 cm2 LA dimension(2D): 3.1 cm LAV(MOD-bp) Indexed: 17.7 ml/m2 LAV(MOD-sp2): 35.7 ml LAV(MOD-sp4): 30.1 ml RA A4 area: 10.6 cm2 Doppler Measurements & Calculations MV E max jacob: 64.6 cm/sec Lat Peak E' Jacob: 5.9 cm/sec Med Peak E' Jacob: 3.7 cm/sec MV A max jacob: 99.3 cm/sec E/E' lat: 10.9 E/E' med: 17.5 MV E/A: 0.65 Ao V2 max: 146.1 cm/sec LV V1 max: 108.6 cm/sec PA V2 max: 96.9 cm/sec Ao max P.5 mmHg LV V1 max P.7 mmHg TR max jacob: 340.1 cm/sec TR max P.3 mmHg ECHO/Echo Complete Interpretation Summary The study was technically difficult. Left ventricular systolic function is normal. The estimated ejection fraction is 65 %. Trivial mitral valve insufficiency. Trivial tricuspid valve insufficiency. Mild diffuse aortic valve thickening. Mild focal aortic valve calcification. Right ventricular systolic pressure estimated to be 49 mmHg c/w pulmonary hyper tension. There is evidence of diastolic dysfunction. Ordering Physician: Corby Diaz Referring Physician: Angelina Jacobson D.O. Performed By: Clotilde Canela RDCS
[2020-09-11 22:46] LABS: Troponin-I HS 46.2 pg/mL (3.0-53.7)
[2020-09-11] MEDS: Polyethylene Glycol 3350 17 GM PACKET PO (23:03)
[2020-09-11] MEDS: carBAMazepine 200 MG Tablet PO (23:03)
[2020-09-11] MEDS: Atorvastatin Calcium 10 MG Tablet PO (23:04)
[2020-09-12] VITALS (11 sets, daily range): BP systolic 117–147; BP diastolic 58–79; PULSE 62–76; RESP 16–18; TEMP 36.5–36.9; O2SAT 92–98
[2020-09-12 01:13] LABS: Hematocrit 38.5 % (37-47); Hemoglobin 12.9 g/dL (12.0-15.0); Mean Corp Hgb Conc 33.5 g/dL (32-36); Mean Corpuscular Hgb 32.2 pg (27.0-32.0); Platelet Count 158 K/mm3 (150-450); RBC Distribution Width CV 12.4 % (11.6-14.6); RBC Distribution Width SD 43.4 fl (35.1-43.9); Red Blood Count 4.01 M/mm3 (4.2-5.4); White Blood Count 5.8 K/mm3 (4.4-11.0)
[2020-09-12 01:27] LABS: Troponin-I HS 42.3 pg/mL (3.0-53.7)
[2020-09-12 01:30] LABS: Anion Gap 9 (5-15); BUN 23 mg/dL (7-18); BUN/Creat Ratio 22.8 RATIO (10-20); Calcium,Total 8.8 mg/dL (8.5-10.1); Chloride 105 mmol/L (98-107); Creatinine, Serum 1.01 mg/dL (0.55-1.02); EST Glomerular Filtration Rate 55 mL/min (>60); Est Glom Filt Rate - Afr Amer 67 mL/min (>60); Estimated Creatinine Clearance 30.17 ml/min; Glucose 109 mg/dL (74-106); Potassium 3.1 mmol/L (3.5-5.1); Sodium Level 140 mmol/L (136-145)
[2020-09-12 01:34] LABS: Partial Thromboplast Time > 250.0 Seconds (24.1-36.2)
[2020-09-12] MEDS: Menthol/Lanolin/Calamine/Znox 113 GM Tube 1 APPLIC TOPICAL ×3 (05:33→21:38)
[2020-09-12 06:45] LABS: Vitamin D,25 Hydroxy 34.5 ng/mL
[2020-09-12] MEDS: Loratadine 10 MG Tablet PO (09:17)
[2020-09-12] MEDS: Potassium Chloride Oral Tablet 20 MEQ PO ×2 (09:17→17:50)
[2020-09-12] MEDS: Polyethylene Glycol 3350 17 GM PACKET PO ×2 (09:17→21:30)
[2020-09-12] MEDS: Senna/Docusate Sodium 1 Tablet 2 TABLET PO (09:17)
[2020-09-12] MEDS: BRIMONIDINE 0.2% 5ML BOTTLE 1 DRP EACH EYE ×2 (09:17→21:30)
[2020-09-12] MEDS: Tolterodine Tartrate 2 MG CAP.SA PO (09:18)
[2020-09-12] MEDS: DULoxetine Hcl 60 MG Capsule PO (09:18)
[2020-09-12] MEDS: carBAMazepine 200 MG Tablet PO ×2 (09:19→21:30)
[2020-09-12] MEDS: amLODIPine 10 MG Tablet PO (09:19)
[2020-09-12] MEDS: Metoprolol(XL)Succ 25 MG Tablet PO (09:19)
[2020-09-12] MEDS: Timolol 0.5% 5ML OPTH.BTL 1 DRP EACH EYE ×2 (09:19→21:34)
[2020-09-12] MEDS: hydroCHLOROthiazide 25 MG Tablet PO (09:19)
[2020-09-12] MEDS: Cholecalciferol (VIT D3) 25 MCG TABLET (1,000 UNITS) 125 MCG PO (09:20)
[2020-09-12] MEDS: Nystatin Powder 15gm Bottle 1 APPLIC TOPICAL ×2 (09:20→21:38)
[2020-09-12 10:16] LABS: Partial Thromboplast Time 97.4 Seconds (24.1-36.2)
--- NOTE | 2020-09-12 10:56 | PN.HOSP_ITS ---
Documented by User: Elio SMYTH 09/12/20 11:20 Subjective Subjective Patient is a 85-year-old female comfortably resting in a chair, alert and orient x3. Patient still endorses shortness of breath, especially with exertion. Denies chest pain, palpitations, hemoptysis, sputum production, fever, chills, N/V/D. Objective Data Objective Data Vital Signs: Vital Signs Temp Pulse Resp BP Pulse Ox 98.4 F 76 18 137/75 H 96 09/12/20 09:16 09/12/20 09:19 09/12/20 09:16 09/12/20 09:16 09/12/20 09:16 Oxygen Flow Rate (L/min) 2 Oxygen Delivery Method Nasal Cannula Weight: 198 lb 6.656 oz Body Mass Index (BMI) 37.5 Intake & Output: Intake and Output for Last 24 Hours 09/10/20 09/11/20 09/12/20 23:59 23:59 23:59 Intake Total 400.09 / 400.09 Balance 400.09 / 400.09 Lab / Micro Data Result Diagrams: 09/12/20 01:03 09/12/20 01:03 Labs: Laboratory Results - last 24 hr 09/11/20 17:17: WBC 6.4, RBC 4.48, Hgb 14.3, Hct 42.4, MCV 94.6, MCH 31.9, MCHC 33.7, RDW Std Deviation 42.7, RDW Coeff of Irish 12.4, Plt Count 158, MPV 9.4, Immature Gran % (Auto) 0.600, Neut % (Auto) 65.2, Lymph % (Auto) 19.4, [place] % (Auto) 11.5 H, Eos % (Auto) 2.8, Baso % (Auto) 0.5, Absolute Neuts (auto) 4.2, Absolute Lymphs (auto) 1.25, Nucleated RBC % 0 09/11/20 17:17: Sodium 139, Potassium 3.9, Chloride 106, Carbon Dioxide 26.0, Anion Gap 7, BUN 27 H, Creatinine 1.11 H, Estim Creat Clear Calc 27.45, Est GFR (MDRD) Af Amer 60, Est GFR (MDRD) Non-Af 50 L, BUN/Creatinine Ratio 24.3 H, Glucose 101, Calcium 9.1, Total Bilirubin 0.50, AST 28, ALT 32, Alkaline Phosphatase 98, Troponin I High Sens 59.0 H*, Total Protein 7.2, Albumin 3.6, Globulin 3.6, Albumin/Globulin Ratio 1.0 09/11/20 17:17: B-Natriuretic Peptide 124.0 H 09/11/20 19:05: PT 14.8, INR 1.2, APTT 24.6 09/11/20 21:50: Troponin I High Sens 46.2 09/12/20 01:03: Vitamin D 25-Hydroxy 34.5 09/12/20 01:03: WBC 5.8, RBC 4.01 L, Hgb 12.9, Hct 38.5, MCV 96.0, MCH 32.2 H, MCHC 33.5, RDW Std Deviation 43.4, RDW Coeff of Irish 12.4, Plt Count 158, MPV 9.0 09/12/20 01:03: Sodium 140, Potassium 3.1 L, Chloride 105, Carbon Dioxide 26.0, Anion Gap 9, BUN 23 H, Creatinine 1.01, Estim Creat Clear Calc 30.17, Est GFR (MDRD) Af Amer 67, Est GFR (MDRD) Non-Af 55 L, BUN/Creatinine Ratio 22.8 H, Glucose 109 H, Calcium 8.8 09/12/20 01:03: Troponin I High Sens 42.3 09/12/20 01:03: APTT > 250.0 H* 09/12/20 09:39: APTT 97.4 H* Micro: Microbiology 09/11/20 20:20 Nasal Secretion SARS-CoV-2 Antigen (Rapid) - Final Radiography Diagnostic Testing: Radiology Impression Chest CTA 09/11/20 17:34 IMPRESSION: Positive for bilateral significant pulmonary emboli. Electronically Signed: Kenneth Thakkar MD at 19:11 EDT Tel , Service support , Echocardiogram 09/11/20 21:15 Interpretation Summary The study was technically difficult. Left ventricular systolic function is normal. The estimated ejection fraction is 65 %. Trivial mitral valve insufficiency. Trivial tricuspid valve insufficiency. Mild diffuse aortic valve thickening. Mild focal aortic valve calcification. Right ventricular systolic pressure estimated to be 49 mmHg c/w pulmonary hypertension. There is evidence of diastolic dysfunction. Ordering Physician: Corby Diaz Referring Physician: Angelina Jacobson D.O. Performed By: Clotilde Canela RDCS Physical Exam Const alert, oriented x3 and no apparent distress HEENT head/scalp atraumatic, moist oral mucous membranes and oropharynx normal Head and Scalp: normocephalic Eyes EOMs intact bilaterally and conjunctivae normal Neck no lymphadenopathy, supple and no JVD Resp Effort and Inspection: abnormal respiratory pattern and labored Auscultation: diminished lung sounds Cardio regular rate, regular rhythm, no murmurs and no JVD GI normal to inspection, nondistended, normoactive bowel sounds, soft to palpation and non-tender Extremity normal to inspection, full ROM and no clubbing, cyanosis or edema Skin no rashes or lesions noted, no wounds and skin turgor normal Neuro CN's II-XII intact bilaterally Psych affect normal Assessment & Plan Assessment/Plan (1) Respiratory insufficiency: (2) Bilateral pulmonary embolism: (3) Hypoxia: (4) Benign essential HTN: PLAN: Day 2: See subjective. Discharge planning: Home therapy recommended per physical therapy, patient to be discharged home when ready. 1) acute hypoxic respiratory failure secondary to bilateral pulmonary embolism Chest CT-A on admission demonstrated bilateral pulmonary emboli. Currently satting 96% on 2 L via nasal cannula. Patient does not use home oxygen. Initial troponin elevated. Echocardiogram to assess for heart function: Normal LV systolic function, an estimated EF of 65%, no evidence of diastolic dysfunction and pulmonary hypertension with an RVSP of 49 mmHg. Plan; continue with heparin infusion, initiate Eliquis at discharge, supplemental oxygen per protocol 2) pulmonary hypertension , Echocardiogram as above. Plan; initiate Lasix 20 mg p.o. daily. 3) HTN Stable, continue amlodipine, hydrochlorothiazide and metoprolol. 4) suspected vitamin D deficiency Vitamin D 25 within normal limits at 34.5. 5) depression Continue Cymbalta 6) dysphagia Patient reports some difficulty swallowing her breakfast this morning as she had one gagging episode. No focal neurological deficits demonstrated on my exam and patient is alert and oriented x3. Patient believes that food just went down the wrong pipe. Plan; speech therapy eval ordered. DVT prophylaxis - Heparin drip Patient seen by Elio Serra PA-C, under the supervision of Dr. Ding. Documented by User: Dr. John Ding MD 09/12/20 12:14 Objective Data Lab / Micro Data Result Diagrams: 09/12/20 01:03 09/12/20 01:03 Assessment & Plan Addt'l Comments This patient was seen in conjunction with Elio Serra PA-C. I have independently interviewed and examined the patient and reviewed pertinent historical, laboratory, and other data. Please refer to Elio Serra PA-C's note for details of this patient's presentation, findings, and recommendations. I have reviewed Elio Serra PA-C's note and concur with documented findings . In brief, patient is a 85-year-old lady admitted with progressive shortness of breath. CTA of the chest obtained demonstrated Positive for bilateral significant pulmonary emboli.. Patient was started on heparin drip admitted to monitored bed for further management Physical Examination: GENERAL: Frail looking HEENT: Atraumatic; EYES; Anicteric, Normal Conjunctiva NECK; supple, normal thyroid, RESPIRATORY: Diminished to auscultation CARDIOVASCULAR: Regular S1 S2, GI: soft, normoactive bowel sounds, SKIN: No Rash PSYCH; Flat affect Assessment: 1. Acute hypoxic respiratory insufficiency 2. Bilateral pulmonary embolism 3. Dyslipidemia 4. Essential hypertension 5. Osteoporosis 6. Dyslipidemia Recommendations: 1. I have discussed the results of my overview and impressions with the patient 2. Options for management were reviewed Charges/Coding Visit Charges Inpatient E&M: 79973 Subs Hosp L3
--- NOTE | 2020-09-12 11:13 | CASEMGMT ---
COLLINS NGUYEN assessment: Face to Face with patient for initial transition planning/care coordination assessment. COLLINS NGUYEN introduced self and role at [facility], pt voices understanding and consents to assessment. Pt is sitting up in chair in no distress on 2L nc. Pt is A/Ox4 and answers all questions appropriately. Care providers, pharmacy, and demographics verified. Presentation: Pt states received Prolia injection and has been SOB since Admitting dx: Bilat PE PCP: [facility] Specialists: Heather, eye; Hang, surgeon Preferred [facility]acy[facility] Insurance: [facility] A/B, [employer] Prescription Benefit: [employer] Living Will/HPOA: Pt states does not have LW/HPOA but would like to complete. Michael RODRIGUEZ aware, voices understanding. LNOK: Kevin Bee, son; Jaycob Bee, son Living Arrangements: Pt states lives alone in 1 story home with ramps in and states no concerns at home. Pt states is independent with ADL's. Transportation: Pt states drives self and states no transportation concerns. DME/HHC: Pt states has the following DME: cane, walker, ramps, grab bars, and tub bench. Pt states no need for any further DME. Pt states no preference for DME company, if she needs home oxygen at discharge. Pt states has had HHC in the past but not currently. Pt states she has been to [facility] in the past. Pt states no concerns with going home at time of discharge. Pt is retired. Pt states does not smoke cigarettes or drink ETOH. Pt states no further concerns/needs. CM to follow for home oxygen need, anti-coag, and any further discharge planning/needs. Advised pt to ask for CM if any further questions/concerns/needs arise, voices understanding. Pt Goal: Home Plan[place]GUY[place]
[2020-09-12] MEDS: Furosemide 20 MG Tablet PO (11:53)
[2020-09-12] MEDS: 0.9% Saline Lock 10 ML Syringe IV (12:50)
--- NOTE | 2020-09-12 13:39 | CHAPLAIN ---
Type of Pastoral Visit _x__ Initial Visit ___ Follow-up Visit ___ On-call Visit ___ General Patient Visit ___ Spiritual Assessment ___ Family Conference ___ Bereavement ___ Rapid Response ___ Code Blue ___ Other (describe below) Pastoral Care Referral From _x__ Patient ___ Family ___ Nurse ___ Physician ___ Assistant Professor In Family Studies ___ Brim Pouncer ___ Other (describe below) Sacrament/Intervention _x__ Active listening ___ Anointing ___ Roman Catholic ___ Bereavement ___ Communion _x__ Dana exploration ___ _x__ Life review _x__ Prayer ___ Reconciliation ___ Sacrament of Sick _x__ Supportive presence ___ Wedding ___ Other (describe below) Pastoral Comments
--- NOTE | 2020-09-12 14:28 | CASEMGMT ---
SW completed a Healthcare Living Will and a Healthcare Power of Merchandise Buyer with patient. Copies were made and given to patient along with originals. A copy of each was also placed in her chart. Yoselyn CASTELLANOS
[2020-09-12 17:58] LABS: Partial Thromboplast Time 57.5 Seconds (24.1-36.2)
[2020-09-12] MEDS: HEPARIN/D5w 25,000 UNITS 25,000 UNITS/250 ML IV.SOLN. 9 UNITS IV (18:33)
[2020-09-12] MEDS: Aspirin 81 MG TAB.CHEW PO (21:30)
[2020-09-12] MEDS: Atorvastatin Calcium 10 MG Tablet PO (21:30)
[2020-09-12] MEDS: DiphenhydrAMINE 25 MG Capsule PO (21:30)
[2020-09-12] MEDS: Latanoprost 0.005% 1 Bottle 1 DRP EACH EYE (21:35)
[2020-09-12 23:54] LABS: Partial Thromboplast Time 62.3 Seconds (24.1-36.2)
[2020-09-13] VITALS (10 sets, daily range): BP systolic 135–139; BP diastolic 52–62; PULSE 56–100; RESP 16–18; TEMP 36.6; O2SAT 92–98
[2020-09-13] MEDS: Menthol/Lanolin/Calamine/Znox 113 GM Tube 1 APPLIC TOPICAL (06:06)
[2020-09-13 07:16] LABS: Absolute Lymphocyte Count 1.34 X10^3/uL (0.83-4.51); Basophil# 0.02 X10^3/uL; Basophil% 0.4 % (0-1); Eosinophil# 0.22 X10^3/uL; Eosinophils% 4.2 % (0-5); Hematocrit 36.5 % (37-47); Hemoglobin 12.1 g/dL (12.0-15.0); Lymphocyte # 1.34 X10^3/ul (0.83-4.51); Lymphocyte % 25.9 % (19-41); Mean Corp Hgb Conc 33.2 g/dL (32-36); Mean Corpuscular Hgb 31.7 pg (27.0-32.0); Mean Corpuscular Volume 95.5 fL (81-99); Mean Platelet Vol. 9.5 fl (6.2-12.0); Monocyte# 0.59 X10^3/uL; Monocyte% 11.4 % (0-10); NRBC Flagged by Analyzer 0 % (0-5); Neutrophil # 2.99 X10^3/uL (2.7-7.7); Neutrophil % 57.7 % (47-70); Platelet Count 126 K/mm3 (150-450); RBC Distribution Width CV 12.3 % (11.6-14.6); RBC Distribution Width SD 42.9 fl (35.1-43.9); Red Blood Count 3.82 M/mm3 (4.2-5.4); White Blood Count 5.2 K/mm3 (4.4-11.0)
[2020-09-13 07:43] LABS: Anion Gap 8 (5-15); BUN 23 mg/dL (7-18); BUN/Creat Ratio 25.2 RATIO (10-20); Calcium,Total 8.2 mg/dL (8.5-10.1); Chloride 106 mmol/L (98-107); Creatinine, Serum 0.91 mg/dL (0.55-1.02); EST Glomerular Filtration Rate 62 mL/min (>60); Est Glom Filt Rate - Afr Amer 75 mL/min (>60); Estimated Creatinine Clearance 33.49 ml/min; Glucose 93 mg/dL (74-106); Potassium 3.3 mmol/L (3.5-5.1); Sodium Level 141 mmol/L (136-145)
[2020-09-13] MEDS: BRIMONIDINE 0.2% 5ML BOTTLE 1 DRP EACH EYE (08:07)
[2020-09-13] MEDS: Potassium Chloride Oral Tablet 20 MEQ PO (08:11)
[2020-09-13] MEDS: Furosemide 20 MG Tablet PO (08:11)
[2020-09-13] MEDS: Tolterodine Tartrate 2 MG CAP.SA PO (08:11)
[2020-09-13] MEDS: DULoxetine Hcl 60 MG Capsule PO (08:11)
[2020-09-13] MEDS: Loratadine 10 MG Tablet PO (08:12)
[2020-09-13] MEDS: Polyethylene Glycol 3350 17 GM PACKET PO (08:12)
[2020-09-13] MEDS: carBAMazepine 200 MG Tablet PO (08:12)
[2020-09-13] MEDS: Nystatin Powder 15gm Bottle 1 APPLIC TOPICAL (08:13)
[2020-09-13] MEDS: Timolol 0.5% 5ML OPTH.BTL 1 DRP EACH EYE (08:18)
[2020-09-13 09:05] LABS: Partial Thromboplast Time 91.9 Seconds (24.1-36.2)
[2020-09-13] MEDS: Potassium Chloride Oral Tablet 20 MEQ 40 MEQ PO (10:17)
--- NOTE | 2020-09-13 10:59 | PCM.DC ---
Discharge Instructions Diet Discharge Diet: No restrictions Activity Discharge Activity: Return to Normal Activity Dressing / Incision Call your doctor if you observe: Fever of 101 or Higher, Numbness or Tingling, Shortness of breath, Dizziness, Chest pain and Increased palpitations (irregular heartbeat) Follow Up Care Please Follow Up With: Primary care provider When: Within the next two weeks. Test Results: Test results from this visit will be discussed in further detail at your follow-up appointment, if applicable. Discharge Plan Admission Admit Date/Time: 09/11/20 20:00 Primary Reason for Your Visit: Shortness of breath Attending Provider: Aliza Craig Primary Care Provider: Angelina Jacobson Discharge Orders/Prescriptions Prescriptions: New Eliquis 5 mg tablet 5 mg PO BID Qty: 90 RF: 0 Continued cholecalciferol (vitamin D3) 5,000 unit capsule See Rx Instructions .ROUTE .COMPLEX RF: 0 metoprolol succinate 25 mg tablet extended release 24 hr 25 mg PO QDAY RF: 0 amlodipine [Norvasc] 10 mg tablet 10 mg PO BREAKFAST RF: 0 hydrochlorothiazide 25 mg tablet 25 mg PO QODAY RF: 0 pregabalin [Lyrica] 75 mg capsule 75 mg PO BID RF: 0 atorvastatin 10 mg tablet 10 mg PO DAILY RF: 0 carbamazepine 200 mg tablet 200 mg PO BID RF: 0 Prolia 60 mg/mL syringe See Rx Instructions .ROUTE .COMPLEX RF: 0 aspirin 81 mg Tablet 81 mg PO QHS RF: 0 potassium chloride 20 mEq Tablet Extended Release 20 meq PO BID RF: 0 diphenhydramine HCl [Benadryl] 25 mg Capsule 25 mg PO QHS RF: 0 latanoprost [Xalatan] 0.005 % Drops 1 drp EACH EYE QHS RF: 0 brimonidine 0.2 % Drops 1 drp EACH EYE BID RF: 0 timolol maleate [Timoptic] 0.5 % Drops 1 drp EACH EYE BID RF: 0 Referrals / Follow Up: Angelina Jacobson DO [Primary Care Provider] - Within 2 Weeks Disposition Disposition (needs filled in before D/C Order can be placed): Home, Self Care
--- NOTE | 2020-09-13 11:47 | CASEMGMT ---
Per Bianca GUADALUPE, pt does not qualify for home oxygen. Pt states is set up with OP therapy in [place] and plans to continue that, declines need for HHC. Pt to be sent home on Eliquis and med e-scribed to [facility] in [place] previously. Per Amador at [facility], pt's co-pay for 90 tabs will be $94.00. Pt updated, voices understanding and provided with Eliquis 30 day free trial card. Pt voices no further questions/concerns/needs. Erica GUADALUPE CM
--- NOTE | 2020-09-13 12:06 | PHA.DC.MC ---
Pharmacy Service has performed discharge medication reconciliation and counseling for this patient. 1. APIXABAN 10MG PO BID X 7 DAYS, THEN 5MG PO BID THEREAFTER The patient's discharge medication list was reviewed for discrepancies and discrepancies were resolved. Home Medications amlodipine 10 mg tablet 10 mg PO BREAKFAST 10/09/17 cholecalciferol (vitamin D3) 125 mcg (5,000 unit) capsule See Rx Instructions .ROUTE .COMPLEX 10/09/17 hydrochlorothiazide 25 mg tablet 25 mg PO QODAY 10/09/17 metoprolol succinate 25 mg tablet,extended release 24 hr 25 mg PO QDAY 10/09/17 pregabalin 75 mg capsule 75 mg PO BID cap 10/09/17 Prolia See Rx Instructions .ROUTE .COMPLEX 09/11/20 aspirin 81 mg PO QHS 09/11/20 atorvastatin 10 mg PO DAILY 09/11/20 brimonidine 1 drp EACH EYE BID 09/11/20 carbamazepine 200 mg PO BID 09/11/20 diphenhydramine HCl [Benadryl] 25 mg PO QHS 09/11/20 latanoprost [Xalatan] 1 drp EACH EYE QHS 09/11/20 potassium chloride 20 meq PO BID 09/11/20 timolol maleate [Timoptic] 1 drp EACH EYE BID 09/11/20 apixaban [Eliquis] 5 mg PO BID #90 tab 09/13/20 The patient was counseled on the following discharge medications and changes in medications for homegoing were reviewed. The Reason for Use, instructions for use, and potential side effects were reviewed for all new medications. The patient's questions regarding all of their medications were answered. The patient was able to verbally demonstrate an understanding of their discharge medications.
--- NOTE | 2020-09-13 14:55 | PCM.DC.SUM ---
Documented by User: Elio SMYTH 09/13/20 15:04 Providers Date of Admission: 09/11/20 Primary Care Physician: Dr. Angelina Jacobson DO Reason For Visit: BILATERAL PE Diagnosis Discharge Diagnosis (1) Respiratory insufficiency: Status: Acute Code(s): R06.89 - Other abnormalities of breathing (2) Bilateral pulmonary embolism: Status: Acute Code(s): I26.99 - Other pulmonary embolism without acute cor pulmonale (3) Hypoxia: Status: Acute Code(s): R09.02 - Hypoxemia (4) Benign essential HTN: Status: Chronic Code(s): I10 - Essential (primary) hypertension Medications at Discharge Home Medications amlodipine 10 mg tablet 10 mg PO BREAKFAST 10/09/17 cholecalciferol (vitamin D3) 125 mcg (5,000 unit) capsule See Rx Instructions .ROUTE .COMPLEX 10/09/17 hydrochlorothiazide 25 mg tablet 25 mg PO QODAY 10/09/17 metoprolol succinate 25 mg tablet,extended release 24 hr 25 mg PO QDAY 10/09/17 pregabalin 75 mg capsule 75 mg PO BID cap 10/09/17 Prolia See Rx Instructions .ROUTE .COMPLEX 09/11/20 aspirin 81 mg PO QHS 09/11/20 atorvastatin 10 mg PO DAILY 09/11/20 brimonidine 1 drp EACH EYE BID 09/11/20 carbamazepine 200 mg PO BID 09/11/20 diphenhydramine HCl [Benadryl] 25 mg PO QHS 09/11/20 latanoprost [Xalatan] 1 drp EACH EYE QHS 09/11/20 potassium chloride 20 meq PO BID 09/11/20 timolol maleate [Timoptic] 1 drp EACH EYE BID 09/11/20 apixaban [Eliquis] 5 mg PO BID #90 tab 09/13/20 Hospital Course Summary of Care Provided Minutes Spent on Discharge: 35 Hospital Course: Discharge planning: Home therapy recommended per physical therapy, patient to be discharged home when ready. 1) acute hypoxic respiratory failure secondary to bilateral pulmonary embolism Chest CT-A on admission demonstrated bilateral pulmonary emboli. Currently satting 94% on RA, no longer reuquiring oxygen supplementation at rest or w/ exertion. Echocardiogram to assess for heart function: Normal LV systolic function, an estimated EF of 65%, no evidence of diastolic dysfunction and pulmonary hypertension with an RVSP of 49 mmHg. Plan; initiate Eliquis 10 mg p.o. twice daily x7 days, then transition to Eliquis 5 mg p.o. twice daily indefinitely. 2) pulmonary hypertension Resolved. 3) HTN Stable, continue amlodipine, hydrochlorothiazide and metoprolol. 4) suspected vitamin D deficiency Vitamin D 25 within normal limits at 34.5. 5) depression Continue Cymbalta 6) dysphagia Speech therapy eval complete, no additional therapy recommended. Plan; continue regular diet and thin liquids Patient seen by Elio Serra PA-C, under the supervision of Dr. Craig. Physical Exam Narrative Patient is an 85-year-old female comfortably resting in a chair, alert and orient x3. Patient reports resolution of shortness of breath on admission and is no longer using oxygen supplementation via nasal cannula. Denies chest pain, shortness of breath, palpitations, hemoptysis, sputum production, fever, chills, N/V/D. Const alert, oriented x3 and no apparent distress HEENT normocephalic, head/scalp atraumatic and hearing grossly normal bilaterally Eyes EOMs intact bilaterally and conjunctivae normal Neck no lymphadenopathy, supple and no JVD Resp normal respiratory effort, no retractions, no use of accessory muscles and clear to auscultation bilaterally Cardio regular rate, regular rhythm, no murmurs and no JVD GI normal to inspection, nondistended, normoactive bowel sounds, soft to palpation and non-tender Extremity normal to inspection, full ROM and no clubbing, cyanosis or edema Skin no rashes or lesions noted, no wounds and skin turgor normal Neuro CN's II-XII intact bilaterally Psych affect normal Weight / BMI Weight Weight: 198 lb 6.656 oz Body Mass Index (BMI) 37.5 ABG / Lab / Microbiology Data Result Diagrams: 09/13/20 06:04 09/13/20 06:04 Laboratory: Laboratory Results - last 24 hr 09/12/20 17:33: APTT 57.5 H 09/12/20 23:20: APTT 62.3 H 09/13/20 06:04: WBC 5.2, RBC 3.82 L, Hgb 12.1, Hct 36.5 L, MCV 95.5, MCH 31.7, MCHC 33.2, RDW Std Deviation 42.9, RDW Coeff of Irish 12.3, Plt Count 126 L, MPV 9.5, Immature Gran % (Auto) 0.400, Neut % (Auto) 57.7, Lymph % (Auto) 25.9, Lamar % (Auto) 11.4 H, Eos % (Auto) 4.2, Baso % (Auto) 0.4, Absolute Neuts (auto) 3.0, Absolute Lymphs (auto) 1.34, Nucleated RBC % 0 09/13/20 06:04: Sodium 141, Potassium 3.3 L, Chloride 106, Carbon Dioxide 27.0, Anion Gap 8, BUN 23 H, Creatinine 0.91, Estim Creat Clear Calc 33.49, Est GFR (MDRD) Af Amer 75, Est GFR (MDRD) Non-Af 62, BUN/Creatinine Ratio 25.2 H, Glucose 93, Calcium 8.2 L 09/13/20 06:04: APTT 91.9 H* Microbiology: Microbiology 09/11/20 20:20 Nasal Secretion SARS-CoV-2 Antigen (Rapid) - Final D/C Instructions Discharge Diet: No restrictions Call your doctor if you observe: Fever of 101 or Higher, Numbness or Tingling, Shortness of breath, Dizziness, Chest pain and Increased palpitations (irregular heartbeat) Please Follow Up With: Primary care provider When: Within the next two weeks. Meaningful Use Info Meaningful Use Diagnoses (Choose all that apply): None applicable and VTE VTE Anticoag overlap given w/in hospital stay or rx'd at dc?: Yes Pt receive overlap for 5 days?: Yes Discharge Plan Admission Admit Date/Time: 09/11/20 20:00 Primary Reason for Your Visit: Shortness of breath Attending Provider: Aliza Craig Primary Care Provider: Angelina Jacobson Discharge Orders/Prescriptions Prescriptions: New Eliquis 5 mg tablet 5 mg PO BID Qty: 90 RF: 0 Continued cholecalciferol (vitamin D3) 5,000 unit capsule See Rx Instructions .ROUTE .COMPLEX RF: 0 metoprolol succinate 25 mg tablet extended release 24 hr 25 mg PO QDAY RF: 0 amlodipine [Norvasc] 10 mg tablet 10 mg PO BREAKFAST RF: 0 hydrochlorothiazide 25 mg tablet 25 mg PO QODAY RF: 0 pregabalin [Lyrica] 75 mg capsule 75 mg PO BID RF: 0 atorvastatin 10 mg tablet 10 mg PO DAILY RF: 0 carbamazepine 200 mg tablet 200 mg PO BID RF: 0 Prolia 60 mg/mL syringe See Rx Instructions .ROUTE .COMPLEX RF: 0 aspirin 81 mg Tablet 81 mg PO QHS RF: 0 potassium chloride 20 mEq Tablet Extended Release 20 meq PO BID RF: 0 diphenhydramine HCl [Benadryl] 25 mg Capsule 25 mg PO QHS RF: 0 latanoprost [Xalatan] 0.005 % Drops 1 drp EACH EYE QHS RF: 0 brimonidine 0.2 % Drops 1 drp EACH EYE BID RF: 0 timolol maleate [Timoptic] 0.5 % Drops 1 drp EACH EYE BID RF: 0 Referrals / Follow Up: Angelina Jacobson DO [Primary Care Provider] - Within 2 Weeks Disposition Disposition (needs filled in before D/C Order can be placed): Home, Self Care Documented by User: Dr. Aliza Craig DO 09/13/20 17:08 Providers Date of Admission: 09/11/20 Reason For Visit: BILATERAL PE Medications at Discharge Home Medications amlodipine 10 mg tablet 10 mg PO BREAKFAST 10/09/17 cholecalciferol (vitamin D3) 125 mcg (5,000 unit) capsule See Rx Instructions .ROUTE .COMPLEX 10/09/17 hydrochlorothiazide 25 mg tablet 25 mg PO QODAY 10/09/17 metoprolol succinate 25 mg tablet,extended release 24 hr 25 mg PO QDAY 10/09/17 pregabalin 75 mg capsule 75 mg PO BID cap 10/09/17 Prolia See Rx Instructions .ROUTE .COMPLEX 09/11/20 aspirin 81 mg PO QHS 09/11/20 atorvastatin 10 mg PO DAILY 09/11/20 brimonidine 1 drp EACH EYE BID 09/11/20 carbamazepine 200 mg PO BID 09/11/20 diphenhydramine HCl [Benadryl] 25 mg PO QHS 09/11/20 latanoprost [Xalatan] 1 drp EACH EYE QHS 09/11/20 potassium chloride 20 meq PO BID 09/11/20 timolol maleate [Timoptic] 1 drp EACH EYE BID 09/11/20 apixaban [Eliquis] 5 mg PO BID #90 tab 09/13/20 Hospital Course Procedures 2-D Echocardiogram Summary of Care Provided Minutes Spent on Discharge: 38 Hospital Course: This patient was seen in conjunction with LIBRA Sunshine. The following is a representation of my independent history and exam. Please see below for addendum's. Mrs. Bee is an 85-year-old white female who presented to the emergency department at [facility] on 09/11/2020 with shortness of breath. Her shortness of breath started approximately 4 days ago after having her fourth Prolia shot at her primary care physician's office. She stated it started acutely but upon conversation with her PCP her son and indicated to her that this has been progressively worsening over time. In the emergency department a CTA of her chest was performed and demonstrated bilateral pulmonary emboli. Per discussion with the patient she had been more sedentary than she had been previously but denied any recent travel or lower extremity injury. She has had no immobilization and no familial history of blood clots or personal history of blood clots. Her oxygen saturation on admission was in the 80s which improved on supplemental oxygen at 2 L nasal cannula. She was initially placed on heparin. An echocardiogram was obtained and showed a normal EF at 65%, trivial mitral valve insufficiency, trivial tricuspid valve insufficiency, mild diffuse aortic valve thickening and calcification with no stenosis and right ventricular systolic pressure at 49 mmHg as well as diastolic dysfunction but no RV strain. On the day of discharge she was reevaluated for oxygen requirements and did not qualify for home oxygen at rest or with exertion prior to discharge. She was discharged home with Eliquis 10 mg p.o. twice daily for 7 days and then 5 mg p.o. twice daily to follow. We did discuss the risks of being anticoagulated and she is aware that bleeding is the most significant risk. She is to follow-up with her primary care physician Dr. Jacobson in 1 to 2 weeks. 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 Multinodular goiter Urinary incontinence Osteoporosis Neuropathy Depression Chronic pain Physical Exam Const alert, oriented x3 and no apparent distress Constitutional Narrative: Elderly white female who appears much younger than stated age, sitting up in bed, no signs of dyspnea at rest, appears comfortable, nontoxic General Appearance: cooperative and comfortable Exam Limitations: no limitations HEENT normocephalic, head/scalp atraumatic and moist oral mucous membranes Eyes PERRL, EOMs intact bilaterally and conjunctivae normal Neck no lymphadenopathy, supple and no JVD Neck Narrative: Trachea midline Resp normal respiratory effort, no retractions, no use of accessory muscles and clear to auscultation bilaterally Cardio regular rate, regular rhythm, S1 normal heart sound, S2 normal heart sound, no murmurs, no rub, no gallops, no clicks and no JVD GI normal to inspection, nondistended, normoactive bowel sounds, soft to palpation, non-tender and non-distended Extremity normal to inspection and no clubbing, cyanosis or edema Skin no rashes or lesions noted, no wounds, skin turgor normal and no jaundice Neuro oriented x3, CN's II-XII intact bilaterally, moves all extremities and no focal motor deficits Neuro Narrative: Generalized weakness proximal greater than distal Sensorium / Orientation: awake, alert, oriented to person, oriented to place and oriented to time Speech: speech normal Psych affect normal Psych Narrative: Very pleasant ABG / Lab / Microbiology Data Result Diagrams: 09/13/20 06:04 09/13/20 06:04 Discharge Plan Admission Admit Date/Time: 09/11/20 20:00 Primary Reason for Your Visit: Shortness of breath Attending Provider: Aliza Craig Primary Care Provider: Angelina Jacobson Discharge Orders/Prescriptions Prescriptions: New Eliquis 5 mg tablet 5 mg PO BID Qty: 90 RF: 0 Continued cholecalciferol (vitamin D3) 5,000 unit capsule See Rx Instructions .ROUTE .COMPLEX RF: 0 metoprolol succinate 25 mg tablet extended release 24 hr 25 mg PO QDAY RF: 0 amlodipine [Norvasc] 10 mg tablet 10 mg PO BREAKFAST RF: 0 hydrochlorothiazide 25 mg tablet 25 mg PO QODAY RF: 0 pregabalin [Lyrica] 75 mg capsule 75 mg PO BID RF: 0 atorvastatin 10 mg tablet 10 mg PO DAILY RF: 0 carbamazepine 200 mg tablet 200 mg PO BID RF: 0 Prolia 60 mg/mL syringe See Rx Instructions .ROUTE .COMPLEX RF: 0 aspirin 81 mg Tablet 81 mg PO QHS RF: 0 potassium chloride 20 mEq Tablet Extended Release 20 meq PO BID RF: 0 diphenhydramine HCl [Benadryl] 25 mg Capsule 25 mg PO QHS RF: 0 latanoprost [Xalatan] 0.005 % Drops 1 drp EACH EYE QHS RF: 0 brimonidine 0.2 % Drops 1 drp EACH EYE BID RF: 0 timolol maleate [Timoptic] 0.5 % Drops 1 drp EACH EYE BID RF: 0 Referrals / Follow Up: Kavon,Angelina, DO [Primary Care Provider] - Within 2 Weeks Disposition Disposition (needs filled in before D/C Order can be placed): Home, Self Care Charges/Coding Visit Charges Inpatient E&M: 77184 Disch Hosp
== END 2020-09-13 14:30 | disposition home or self-care (01) | DRG 175 ==
LOC: ED 17:53 → PCU 20:14
PROVIDERS: Internal Medicine; Physician Assistant; Admitting Provider Hospitalist; Emergency Provider Emergency Medicine; PCP Internal Medicine; Visit Provider Internal Medicine
DX: I26.99 Other pulmonary embolism without acute cor pulmonale (principal); J96.01 Acute respiratory failure with hypoxia; I27.20 Pulmonary hypertension, unspecified; I10 Essential (primary) hypertension; E78.5 Hyperlipidemia, unspecified; E55.9 Vitamin D deficiency, unspecified; F32.9 Major depressive disorder, single episode, unspecified; E04.2 Nontoxic multinodular goiter; M81.0 Age-related osteoporosis without current pathological fracture; G62.9 Polyneuropathy, unspecified; G89.29 Other chronic pain; R32 Unspecified urinary incontinence; R13.10 Dysphagia, unspecified; Z79.01 Long term (current) use of anticoagulants; Z79.82 Long term (current) use of aspirin; Z79.899 Other long term (current) drug therapy
CPT/HCPCS: 36415; 71275; 80048; 80053; 82306; 83880; 84484; 85025; 85027; 85610; 85730; 87426; 92610; 93005; 93306; 97162; 97166; 97535; 97802; 99285; Q9967; A4216

== ENCOUNTER 2021-04-24 13:44 | Outpatient (CLI) | payer MEDICARE, OTHER, SELFPAY ==
[2021-04-24 14:35] VITALS: BP 151/77; PULSE 65; RESP 18; TEMP 36.2; O2SAT 95; BMI 32.1
[2021-04-24] MEDS: DENOSUMAB 60 MG/ML SC (14:40)
== END 2021-04-24 23:59 | disposition home or self-care (01) ==
PROVIDERS: PCP Internal Medicine; Referring Provider Internal Medicine; Visit Provider Internal Medicine
DX: M81.0 Age-related osteoporosis without current pathological fracture (principal)
CPT/HCPCS: 96372; J0897

== ENCOUNTER → 2021-10-29 | Outpatient (CLI) | payer MEDICARE, OTHER, SELFPAY ==
[2021-10-29] MEDS: DENOSUMAB 60 MG/ML SC (14:00)
[2021-10-29 14:05] VITALS: BP 155/75; PULSE 59; RESP 16; TEMP 36.1; O2SAT 98
== END | disposition home or self-care (01) ==
LOC: MEDOUTP 13:20
PROVIDERS: PCP Internal Medicine; Referring Provider Internal Medicine; Visit Provider Internal Medicine
DX: M81.0 Age-related osteoporosis without current pathological fracture (principal)
CPT/HCPCS: 96372; J0897

== ENCOUNTER → 2022-04-30 | Outpatient (CLI) | payer MEDICARE, OTHER, SELFPAY ==
[2022-04-30 09:25] VITALS: BP 166/80; PULSE 68; RESP 16; TEMP 35.9; O2SAT 96; BMI 34.0
[2022-04-30] MEDS: DENOSUMAB 60 MG/ML SC (09:30)
[2022-04-30 09:50] LABS: Absolute Lymphocyte Count 0.89 X10^3/uL (0.83-4.51); Absolute Neutrophil Count 3.3 X10^3/uL (2.0-7.7); Basophil# 0.02 X10^3/uL; Basophil% 0.4 % (0-1); Eosinophil# 0.16 X10^3/uL; Eosinophils% 3.2 % (0-5); Hematocrit 42.6 % (37-47); Hemoglobin 13.9 g/dL (12.0-15.0); Lymphocyte # 0.89 X10^3/ul (0.83-4.51); Lymphocyte % 17.8 % (19-41); Mean Corp Hgb Conc 32.6 g/dL (32-36); Mean Corpuscular Volume 98.2 fL (81-99); Mean Platelet Vol. 9.3 fl (6.2-12.0); Monocyte# 0.61 X10^3/uL; Monocyte% 12.2 % (0-10); NRBC Flagged by Analyzer 0 % (0-5); Neutrophil # 3.31 X10^3/uL (2.7-7.7); Platelet Count 144 K/mm3 (150-450); RBC Distribution Width CV 12.5 % (11.6-14.6); RBC Distribution Width SD 45.4 fl (35.1-43.9); Red Blood Count 4.34 M/mm3 (4.2-5.4)
[2022-04-30 10:32] LABS: Vitamin B12 800 pg/mL (211-911); Vitamin D,25 Hydroxy 43.5 ng/mL
[2022-04-30 10:42] LABS: PTHIN 166.1 pg/mL (18.4-80.1)
[2022-04-30 10:52] LABS: ALB/GLOB Ratio 1.1 RATIO (0.9-2.4); AST(SGOT) 15 U/L (15-37); Alanine Aminotransfer ALT/SGPT 18 U/L (13-56); Albumin, Serum 3.5 g/dL (3.2-5.0); Alkaline Phosphatase 80 U/L (45-117); Anion Gap 7 (5-15); BUN 35 mg/dL (7-18); BUN/Creat Ratio 29.7 RATIO (10-20); Calcium,Total 9.8 mg/dL (8.5-10.1); Chloride 109 mmol/L (98-107); Cholesterol 167 mg/dL (200); Creatinine, Serum 1.18 mg/dL (0.55-1.02); EST Glomerular Filtration Rate 46 mL/min (>60); Est Glom Filt Rate - Afr Amer 56 mL/min (>60); Estimated Creatinine Clearance 25.35 ml/min; Free T3 2.3 pg/mL (2.18-3.98); Globulin 3.2 g/dL (2.2-4.2); Glucose 115 mg/dL (74-106); High Density Lipoprotein 53 mg/dL; Potassium 4.3 mmol/L (3.5-5.1); Protein, Total 6.7 g/dL (6.4-8.2); Sodium Level 143 mmol/L (136-145); T4 Free Direct 0.74 ng/dL (0.76-1.46); Thyroid Stim Hormone (TSH) 2.44 uIU/mL (0.358-3.74); Triglycerides 154 mg/dL; Very Low Density Lipoprotein 31 mg/dL (5-40)
[2022-04-30 16:45] LABS: Phosphorus 3.1 mg/dL (2.5-4.9)
== END | disposition home or self-care (01) ==
LOC: MEDOUTP 09:18
PROVIDERS: PCP Internal Medicine; Referring Provider Internal Medicine; Visit Provider Internal Medicine
DX: M81.0 Age-related osteoporosis without current pathological fracture (principal); E21.3 Hyperparathyroidism, unspecified; E78.00 Pure hypercholesterolemia, unspecified; G62.9 Polyneuropathy, unspecified; E04.1 Nontoxic single thyroid nodule; I10 Essential (primary) hypertension
CPT/HCPCS: 36415; 80053; 80061; 82306; 82607; 82746; 83970; 84100; 84439; 84443; 84481; 85025; 96372; J0897

== ENCOUNTER 2022-11-14 14:39 | Outpatient (CLI) | payer MEDICARE, OTHER, SELFPAY ==
[2022-11-14] MEDS: DENOSUMAB 60 MG/ML SC (14:54)
[2022-11-14 14:59] VITALS: BP 158/82; PULSE 57; RESP 18; TEMP 36.7; O2SAT 96; BMI 33.0
== END 2022-11-14 14:40 | disposition home or self-care (01) ==
LOC: MEDOUTP 14:39
PROVIDERS: PCP Internal Medicine; Referring Provider Internal Medicine; Visit Provider Internal Medicine
DX: M81.0 Age-related osteoporosis without current pathological fracture (principal)
CPT/HCPCS: 96372; J0897

== ENCOUNTER 2023-05-29 10:20 | Outpatient (CLI) | payer MEDICARE, OTHER, SELFPAY ==
[2023-05-29 10:37] VITALS: BP 141/61; PULSE 53; RESP 18; TEMP 35.9; O2SAT 96; BMI 33.0
[2023-05-29] MEDS: DENOSUMAB 60 MG/ML SC (10:47)
== END 2023-05-29 10:21 | disposition home or self-care (01) ==
LOC: MEDOUTP 10:23
PROVIDERS: PCP Internal Medicine; Referring Provider Internal Medicine; Visit Provider Internal Medicine
DX: M81.0 Age-related osteoporosis without current pathological fracture (principal)
CPT/HCPCS: 96372; J0897

== ENCOUNTER 2023-12-10 10:20 | Outpatient (CLI) | payer MEDICARE, OTHER, SELFPAY ==
[2023-12-10 10:28] VITALS: BP 80/43; PULSE 51; RESP 16; TEMP 35.8
[2023-12-10] MEDS: DENOSUMAB 60 MG/ML SC (10:53)
== END 2023-12-10 23:59 | disposition home or self-care (01) ==
LOC: MEDOUTP 10:22
PROVIDERS: PCP Internal Medicine; Referring Provider Internal Medicine; Visit Provider Internal Medicine
DX: M81.0 Age-related osteoporosis without current pathological fracture (principal)
CPT/HCPCS: 96372; J0897

== ENCOUNTER → 2024-01-07 | Outpatient (CLI) | payer MEDICARE, OTHER, SELFPAY ==
[2024-01-07 17:48] LABS: Absolute Neutrophil Count 3.2 X10^3/uL (2.0-7.7); Basophil# 0.03 X10^3/uL; Basophil% 0.5 % (0-1); Eosinophil# 0.27 X10^3/uL; Eosinophils% 4.9 % (0-5); Hematocrit 42.3 % (37-47); Hemoglobin 13.4 g/dL (12.0-15.0); Lymphocyte % 23.6 % (19-41); Mean Corp Hgb Conc 31.7 g/dL (32-36); Mean Corpuscular Hgb 32.1 pg (27.0-32.0); Mean Corpuscular Volume 101.4 fL (81-99); Mean Platelet Vol. 9.9 fl (6.2-12.0); Monocyte# 0.68 X10^3/uL; Monocyte% 12.3 % (0-10); NRBC Flagged by Analyzer 0 % (0-5); Neutrophil # 3.22 X10^3/uL (2.7-7.7); Neutrophil % 58.5 % (47-70); Platelet Count 157 K/mm3 (150-450); RBC Distribution Width SD 48.6 fl (35.1-43.9); Red Blood Count 4.17 M/mm3 (4.2-5.4); White Blood Count 5.5 K/mm3 (4.4-11.0)
[2024-01-15 14:10] LABS: Anti-Cardiolipin Ab, IgG, Qn < 9 GPL U/mL (0-14); Anti-Cardiolipin Ab, IgM, Qn < 9 MPL U/mL (0-12); Antithrombin 3 Function 118 % (75-135); Dilute Prothrombin Time (dPT) 40.1 sec (0.0-47.6); Dilute Russell Viper Venom 38.1 sec (0.0-47.0); Interpretation Comment: (.); PTT-LA 29.3 sec (0.0-43.5); Protein C Antigen 106 % (60-150); Protein C, Functional 137 % (73-180); Protein S, Free 90 % (61-136); Protein S, Funtional 66 % (63-140); Protein S, Total 94 % (60-150); Thrombin Time 21.5 sec (0.0-23.0); dPT Confirm Ratio 1.23 Ratio (0.00-1.34)
== END | disposition home or self-care (01) ==
LOC: MTLAB 14:17
PROVIDERS: PCP Internal Medicine; Referring Provider Internal Medicine; Visit Provider Internal Medicine
DX: I26.99 Other pulmonary embolism without acute cor pulmonale (principal)
CPT/HCPCS: 36415; 81240; 81241; 81291; 85025; 85300; 85302; 85303; 85305; 85306; 86147

== ENCOUNTER 2024-02-16 15:20 | Outpatient (CLI) | payer MEDICARE, OTHER, SELFPAY | END 2024-02-16 23:59 | disposition home or self-care (01) | PROVIDERS: PCP Internal Medicine; Referring Provider Internal Medicine; Visit Provider Internal Medicine | DX: R89.9 Unspecified abnormal finding in specimens from other organs, systems and tissues (principal) | CPT/HCPCS: 36415; 83090 ==